=== PATIENT | female | born 1960 | race Hispanic/Latino ===

== ENCOUNTER 2017-03-23 08:35 | Inpatient (IN) | payer MEDICAID ==
[2017-03-23] MEDS ORDERED: Sodium Chloride 0.9% 1,000 ML IV STA (08:57)
[2017-03-23] MEDS ORDERED: HYDROmorphone 2 mg/ml ISec IVP STA ×2 (08:57→13:08)
[2017-03-23 09:18] LABS: BASO # 0.02 K/mm3 (0.0-2.0); BASO % 0.1 % (0.0-3.0); EOS # 0.1 (0.0-0.7); EOS % 0.4 % (1.5-5.0); GRAN # 12.83 (1.4-6.5); GRAN % 79.6 % (50.0-68.0); LYMPH # 2.1 (1.2-3.4); MEAN CELL VOLUME 88.5 fl (80.0-105.0); MEAN CORPUSCULAR HEMOGLOBIN 30.5 pg (25.0-35.0); MEAN CORPUSCULAR HGB CONC 34.4 g/dl (31.0-37.0); MEAN PLATELET VOLUME 8.9 fl (7.0-11.0); MONO # 1.1 (0.1-0.6); MONO % 6.9 % (1.0-6.0); RED CELL DISTRIBUTION WIDTH 13.2 % (11.5-14.5); URINE BILIRUBIN SMALL (NEGATIVE); URINE BLOOD SMALL (NEGATIVE); URINE GLUCOSE (UA) NEGATIVE (NEGATIVE); URINE KETONE 15 mg/dL (NEGATIVE); URINE LEUKOCYTE ESTERASE NEGATIVE Leu/uL (NEGATIVE); URINE PROTEIN TRACE mg/dL (<30 mg/dL); WHITE BLOOD COUNT 16.1 10^3/ul (4.5-11.0)
--- NOTE | 2017-03-23 09:19 | ED PDOC ---
Arrival/HPI - General Chief Complaint: Abdominal Pain Time Seen by Provider: 03/23/17 08:39 Historian: Patient - History of Present Illness Narrative History of Present Illness (Text): 03/23/17 09:21 A 56 year old female, whose past medical history includes diverticulitis and kidney stones, presents to the emergency department complaining of worsening lower abdominal pain since yesterday with associated nausea and vomiting this morning. Patient reports she also had congestion, constipation and low grade fever for the past couple of weeks. Notes last bowel movement was two days ago, decrease in appetite but denies any hematuria, dysuria or any other complaints at this time. Symptom Onset: Sudden Symptom Course: Unchanged Activities at Onset: Rest Context: Home Past Medical History - Provider Review Nursing Documentation Reviewed: Yes - Infectious Disease Hx of Infectious Diseases: None - Tetanus Immunization Tetanus Immunization: Unknown - Cardiac Hx Cardiac Disorders: No - Pulmonary Hx Respiratory Disorders: No - Neurological Hx Seizures: Yes (ONLY ONE) Other/Comment: 2012 BRAIN ABSCESS WITH CRANIOTOMY - HEENT Hx HEENT Disorder: No - Renal Hx Kidney Stones: Yes (LITHOTRISPY) - Endocrine/Metabolic Hx Endocrine Disorders: No - Hematological/Oncological Hx Blood Transfusions: No - Integumentary Hx Dermatological Disorder: No - Musculoskeletal/Rheumatological Hx Musculoskeletal Disorders: No - Gastrointestinal Hx Diverticulitis: Yes - Genitourinary/Gynecological Other/Comment: MISCARRIAGE,TUBAL LIGATION 3 CHILDREN - Psychiatric Hx Emotional Abuse: No Hx Physical Abuse: No Hx Substance Use: No - Surgical History Other/Comment: 2012 CRANIOTOMY (BRAIN ABSCESS) - Anesthesia Hx Anesthesia Reactions: No Hx Malignant Hyperthermia: No - Suicidal Assessment Feels Threatened In Home Enviroment: No Family/Social History - Physician Review Nursing Documentation Reviewed: Yes Family/Social History: No Known Family HX Smoking Status: Current Some Days Smoker Hx Alcohol Use: No Hx Substance Use: No Hx Substance Use Treatment: No Allergies/Home Meds Allergies/Adverse Reactions: Allergies ceftriaxone sodium [From Rocephin] Allergy (Verified 08/12/16 00:53) RASH Penicillins Allergy (Verified 08/12/16 00:53) RASH Home Medications: Home Meds Medication Instructions Recorded Confirmed No Known Home Med 03/23/17 03/23/17 Review of Systems - Review of Systems Constitutional: Fatigue, Weight Change, Fevers (low grade) Eyes: absent: Eye Pain ENT: Sinus Congestion. absent: Hearing Changes Respiratory: absent: SOB Cardiovascular: absent: Chest Pain Gastrointestinal: Abdominal Pain, Constipation, Nausea, Vomiting, Appetite Changes Genitourinary Female: absent: Dysuria, Hematuria, Urine Output Changes Musculoskeletal: absent: Back Pain, Neck Pain Skin: absent: Rash Neurological: absent: Headache, Dizziness, Focal Weakness Hemo/Lymphatic: absent: Easy Bleeding Physical Exam - Physical Exam Narrative Physical Exam (Text): 03/23/17 09:19 Head: Atraumatic. Normocephalic. Eyes: PERRL. EOMI. Conjunctivae are not pale. ENT: Mucous membranes are moist and intact. Oropharynx is clear and symmetric. Neck: Supple. Full ROM. No JVD. No lymphadenopathy. Cardiovascular: Regular rate. Regular rhythm. No murmurs, rubs, or gallops. Distal pulses are 2+ and symmetric. Pulmonary/Chest: No evidence of respiratory distress. Clear to auscultation bilaterally. No wheezing, rales or rhonchi. Abdominal: Diffuse lower abdominal tenderness, more focal in suprapubic region. Good bowel sounds. Moderate pain with direct palpation. Back: No CVA tenderness. Extremities: No edema. No cyanosis. No clubbing. Full range of motion in all extremities. No calf tenderness. Skin: Skin is warm and dry. No petechiae. No purpura. Neurological: Alert, awake, and oriented. Motor and sensory exam intact. Psychiatric: Good eye contact. Normal interaction, affect, and behavior. Vital Signs Reviewed: Yes Vital Signs Temp Pulse Resp BP Pulse Ox 03/23/17 11:29 73 18 108/72 96 03/23/17 10:31 74 18 110/76 98 03/23/17 08:36 97.7 F 87 18 131/80 97 Temperature: Afebrile Blood Pressure: Normal Pulse: Regular Respiratory Rate: Normal Appearance: Positive for: Non-Toxic, Uncomfortable Pain Distress: Moderate Mental Status: Positive for: Alert and Oriented X 3 Medical Decision Making ED Course and Treatment: 03/23/17 09:16 Impression: A 56 year old female with abdominal pain. Differential Diagnosis included but are not limited to: diverticulitis vs. bowel obstruction vs. kidney stones Plan: -- EKG -- CT abd/pelvis -- labs -- Urinalysis -- Dilaudid, IV fluids, Zofran -- Reassess and disposition Prior Visits: Notes and results from previous visits were reviewed. Patient was last seen in the emergency department on 08/17/16 for evaluation of right flank pain. Progress Notes: Patient noted to have moderate to severe pain on palpation. IV pain medication ordered and iv hydration. CT ordered. 03/23/17 10:32 CT Abdomen and Pelvis with contrast Creator : DRAGAN CAPELLAN MD FINDINGS: LOWER THORAX: Unremarkable. LIVER: Unremarkable. No gross lesion or ductal dilatation. GALLBLADDER AND BILE DUCTS: Unremarkable. PANCREAS: Unremarkable. No gross lesion or ductal dilatation. SPLEEN: Unremarkable. ADRENALS: Unremarkable. No mass. KIDNEYS AND URETERS: Unremarkable. No hydronephrosis. No solid mass. VASCULATURE: Unremarkable. No aortic aneurysm. BOWEL: Diverticulosis of descending and sigmoid colon. Acute sigmoid diverticulitis. Very sigmoid inflammatory change. Mural thickening of the sigmoid colon. Findings consistent with acute diverticulitis. No evidence of pericolonic abscess or free air. No bowel obstruction. No other abnormal bowel loops. APPENDIX: Normal appendix. PERITONEUM: Unremarkable. No free fluid. No free air. LYMPH NODES: Unremarkable. No enlarged lymph nodes. BLADDER: Poorly distended. Grossly unremarkable. REPRODUCTIVE: Normal uterus. BONES: No acute fracture. IMPRESSION: Acute sigmoid diverticulitis. No evidence of abscess or free air. No other significant abnormality. 03/23/17 10:50 On reexamination, pain has improved after Dilaudid, but persistent. white blood count is elevated and patient is found to have acute diverticulitis on CT abd/ pelvis. No mention of abscess or perforation. Due to severity of pain, patient will be admitted for abdominal pain and IV antibiotics. Patient reports allergy to penicillin. Plan is to admit patient to hospitalist. CV stable, afebrile currently in ED. Labs and CT findings reviewed with patient and family, agreeable to admission due to severity of pain that is persistent and CT findings. - Lab Interpretations Lab Results: 03/23/17 09:00 03/23/17 09:00 Lab Results 03/23/17 09:00: Sodium 141, Chloride 102, Potassium 3.7, Carbon Dioxide 28, Anion Gap 15, BUN 13, Creatinine 0.5, Est GFR ( Amer) > 60, Est GFR (Non- Af Amer) > 60, Random Glucose 120 H, Calcium 9.3, Total Bilirubin 0.5, AST 35, ALT 38, Alkaline Phosphatase 156 H, Lactate Dehydrogenase 457, Total Creatine Kinase 87, Troponin I < 0.01, Total Protein 8.0, Albumin 3.9, Globulin 4.1, Albumin/Globulin Ratio 1.0 L 03/23/17 09:00: pO2 71 H, VBG pH 7.45 H, VBG pCO2 43.0, VBG HCO3 29.9 H, VBG Total CO2 31.2 H, VBG O2 Sat (Calc) 97.4 H, VBG Base Excess 5.2 H, VBG Potassium 3.7, Sodium 139.0, Chloride 103.0, Glucose 122 H, Lactate 0.7, FiO2 21.0, Venous Blood Potassium 3.7 03/23/17 09:00: Urine Color Yellow, Urine Appearance Clear, Urine pH 6.0, Ur Specific [place] >= 1.030, Urine Protein Trace H, Urine Glucose (UA) Negative, Urine Ketones 15 H, Urine Blood Small H, Urine Nitrate Negative, Urine Bilirubin Small H, Urine Urobilinogen 2.0 H, Ur Leukocyte Esterase Negative, Urine RBC 0 - 2, Urine WBC 0 - 2, Ur Epithelial Cells 1 - 3, Urine Bacteria Small 03/23/17 09:00: WBC 16.1 H D, RBC 3.84, Hgb 11.7 L, Hct 34.0 L, MCV 88.5, MCH 30.5, MCHC 34.4, RDW 13.2, Plt Count 492 H, MPV 8.9, Gran % 79.6 H, Lymph % ( Auto) 13.0 L, [place] % (Auto) 6.9 H, Eos % (Auto) 0.4 L, Baso % (Auto) 0.1, Gran # 12.83 H, Lymph # 2.1, [place] # 1.1 H, Eos # 0.1, Baso # 0.02 I have reviewed the lab results: Yes - RAD Interpretation Radiology Orders: 03/23/17 08:57 ABD & PELVIS IV CONTRAST ONLY [CT] Stat - EKG Interpretation Interpreted by ED Physician: Yes Type: 12 lead EKG - Medication Orders Current Medication Orders: Metronidazole (Flagyl) 500 mg in 100 mls @ 100 mls/hr IVPB STAT STA PRN Reason: Protocol Stop: 03/23/17 11:51 Last Admin: 03/23/17 11:01 Dose: 100 mls/hr Discontinued Medications Hydromorphone HCl (Dilaudid) 2 mg IVP STAT STA Stop: 03/23/17 08:58 Last Admin: 03/23/17 09:15 Dose: 2 mg Sodium Chloride (Sodium Chloride 0.9%) 1,000 mls @ 1,000 mls/hr IV .Q1H STA Stop: 03/23/17 09:56 Last Admin: 03/23/17 09:14 Dose: 1,000 mls/hr Iohexol (Omnipaque 350 100 Ml) Confirm Administered Dose 350 mg .ROUTE .STK-MED ONE Stop: 03/23/17 09:44 Levofloxacin/Dextrose (Levaquin 750mg) 750 mg IVPB STAT STA Stop: 03/23/17 10:53 Ondansetron HCl (Zofran Inj) 4 mg IVP ONCE ONE Stop: 03/23/17 08:58 Last Admin: 03/23/17 09:15 Dose: 4 mg - Lamaribe Statement The provider has reviewed the documentation as recorded by the Jai Zhu Provider Scribe Attestation: All medical record entries made by the Jai were at my direction and personally dictated by me. I have reviewed the chart and agree that the record accurately reflects my personal performance of the history, physical exam, medical decision making, and the department course for this patient. I have also personally directed, reviewed, and agree with the discharge instructions and disposition. Disposition/Present on Arrival - Present on Arrival Any Indicators Present on Arrival: No History of DVT/PE: No History of Uncontrolled Diabetes: No Urinary Catheter: No History of Decub. Ulcer: No History Surgical Site Infection Following: None - Disposition Have Diagnosis and Disposition been Completed?: Yes Diagnosis: Acute diverticulitis Disposition: HOSPITALIZED Disposition Time: 10:54 Patient Plan: Discharge Patient Problems: Current Active Problems Problem Status Onset Acute diverticulitis Acute Condition: FAIR
[2017-03-23 09:20] LABS: VENOUS BLOOD GAS BASE EXCESS 5.2 mmol/L (0.0-2.0); VENOUS BLOOD PH 7.45 (7.32-7.43)
[2017-03-23 09:23] LABS: URINE COLOR YELLOW (YELLOW)
[2017-03-23 09:24] LABS: URINE APPEARANCE CLEAR (CLEAR)
[2017-03-23 09:27] LABS: ALKALINE PHOSPHATASE 156 U/L (38-133); ALT/SGPT 38 U/L (7-56); AST/SGOT 35 U/L (15-39); BILIRUBIN,TOTAL 0.5 mg/dL (0.2-1.3); BLOOD UREA NITROGEN 13 mg/dL (7-21); CALCIUM 9.3 mg/dL (8.4-10.5); CARBON DIOXIDE 28 mmol/L (21-33); CHLORIDE 102 mmol/L (98-107); GFR AFRICAN-AMERICAN > 60; GLUCOSE,RANDOM 120 mg/dL (70-110); POTASSIUM 3.7 mmol/L (3.6-5.0); SODIUM 141 mmol/L (132-148)
[2017-03-23 09:35] LABS: URINE BACTERIA SMALL (NEG); URINE RBC 0 - 2 /hpf (0-2); URINE WBC 0 - 2 /hpf (0-6)
[2017-03-23 09:39] LABS: TROPONIN I < 0.01 ng/mL
[2017-03-23] MEDS ORDERED: Iohexol 350 MG/100 ML VIAL ONE (09:43)
--- NOTE | 2017-03-23 10:30 | CT ---
PROCEDURE: CT Abdomen and Pelvis with contrast HISTORY: lower abdominal pain, hx of diverticulitis COMPARISON: 08/17/2016 TECHNIQUE: Contrast dose: 100 mL Omnipaque 350 Radiation dose: Total exam DLP = 978.86 mGy-cm. This CT exam was performed using one or more of the following dose reduction techniques: Automated exposure control, adjustment of the mA and/or kV according to patient size, and/or use of iterative reconstruction technique. FINDINGS: LOWER THORAX: Unremarkable. LIVER: Unremarkable. No gross lesion or ductal dilatation. GALLBLADDER AND BILE DUCTS: Unremarkable. PANCREAS: Unremarkable. No gross lesion or ductal dilatation. SPLEEN: Unremarkable. ADRENALS: Unremarkable. No mass. KIDNEYS AND URETERS: Unremarkable. No hydronephrosis. No solid mass. VASCULATURE: Unremarkable. No aortic aneurysm. BOWEL: Diverticulosis of descending and sigmoid colon. Acute sigmoid diverticulitis. Very sigmoid inflammatory change. Mural thickening of the sigmoid colon. Findings consistent with acute diverticulitis. No evidence of pericolonic abscess or free air. No bowel obstruction. No other abnormal bowel loops. APPENDIX: Normal appendix. PERITONEUM: Unremarkable. No free fluid. No free air. LYMPH NODES: Unremarkable. No enlarged lymph nodes. BLADDER: Poorly distended. Grossly unremarkable. REPRODUCTIVE: Normal uterus. BONES: No acute fracture. OTHER FINDINGS: None. IMPRESSION: Acute sigmoid diverticulitis. No evidence of abscess or free air. No other significant abnormality.
[2017-03-23] MEDS ORDERED: levoFLOXacin 750 mg in D5W 150 ML BAG IVPB STA (10:52)
[2017-03-23] MEDS ORDERED: metroNIDAZOLE IV 500 mg/100 ml 500 MG/100 ML BAG IVPB STA (10:52)
[2017-03-23] MEDS ORDERED: HYDROmorphone 2 mg/ml ISec IVP PRN (12:59)
--- NOTE | 2017-03-23 13:37 | CP.PCM.HP ---
<Kenna Lee - Last Filed: 03/23/17 14:06> History of Present Illness - History of Present Illness History of Present Illness: Patient is a 56 year old female with PMHx of diverticulitis, nephrolithiasis and brain abscess presents to the ED for lower abdominal pain that started yesterday afternoon. Patient states that lower abdominal pain was constant, no radiation. Rates the pain 10/10. No alleviating or exacerbating factors. Pain was associated with multiple episodes of nausea and NBNB vomiting this morning. Patient states that she have a temp of 100.2 last night. Reports having decreased appetite and losing 17lbs within the last month. Denies chills, visual changes, chest pain, palpitations, shortness of breath, urinary symptoms , changes in bowel habits. Last BM was two days ago. Allergies: Ceftriaxone, PCN Medications: denies Medical Hx: denies Surgical Hx: Craniotomy for brain abscess removal, BTL, lithotripsy Social Hx: Denies alcohol, tobacco, drugs use; never had a colonoscopy Family Hx: non-contributory Present on Admission - Present on Admission Any Indicators Present on Admission: No History of DVT/PE: No History of Uncontrolled Diabetes: No Urinary Catheter: No Decubitus Ulcer Present: No Review of Systems - Review of Systems All systems: reviewed and no additional remarkable complaints except - Constitutional Constitutional: Fever, Weight Loss. absent: Chills, Headache - EENT Eyes: absent: Blurred Vision, Change in Vision Ears: absent: Decreased Hearing - Cardiovascular Cardiovascular: absent: Chest Pain, Dyspnea, Lightheadedness, Palpitations, Pedal Edema - Respiratory Respiratory: absent: Cough, Dyspnea, Wheezing - Gastrointestinal Gastrointestinal: Abdominal Pain, Constipation, Nausea, Vomiting. absent: Bloating, Diarrhea - Genitourinary Genitourinary: absent: Difficulty Urinating, Hematuria, Urinary Incontinence - Musculoskeletal Musculoskeletal: absent: Back Pain, Numbness, Tingling - Integumentary Integumentary: absent: Rash - Neurological Neurological: absent: Confusion, Dizziness, Headaches, Weakness Past Patient History - Infectious Disease Hx of Infectious Diseases: None - Tetanus Immunizations Tetanus Immunization: Unknown - Past Social History Smoking Status: Current Some Days Smoker - CARDIAC Hx Cardiac Disorders: No - PULMONARY Hx Respiratory Disorders: No - NEUROLOGICAL Hx Seizures: Yes (ONLY ONE) Other/Comment: 2013 BRAIN ABSCESS WITH CRANIOTOMY - HEENT Hx HEENT Problems: No - RENAL Hx Kidney Stones: Yes (LITHOTRISPY) - ENDOCRINE/METABOLIC Hx Endocrine Disorders: No - HEMATOLOGICAL/ONCOLOGICAL Hx Blood Transfusions: No - INTEGUMENTARY Hx Dermatological Problems: No - MUSCULOSKELETAL/RHEUMATOLOGICAL Hx Musculoskeletal Disorders: No - GASTROINTESTINAL Hx Diverticulitis: Yes - GENITOURINARY/GYNECOLOGICAL Other/Comment: MISCARRIAGE,TUBAL LIGATION 3 CHILDREN - PSYCHIATRIC Hx Emotional Abuse: No Hx Physical Abuse: No Hx Substance Use: No - SURGICAL HISTORY Other/Comment: 2013 CRANIOTOMY (BRAIN ABSCESS) - ANESTHESIA Hx Anesthesia Reactions: No Hx Malignant Hyperthermia: No Meds Allergies/Adverse Reactions: Allergies Allergy/AdvReac Type Severity Reaction Status Date / Time ceftriaxone sodium Allergy RASH Verified 03/23/17 11:50 [From Rocephin] Penicillins Allergy RASH Verified 03/23/17 11:50 Physical Exam - Constitutional Appears: Well, No Acute Distress - Head Exam Head Exam: ATRAUMATIC, NORMAL INSPECTION - Eye Exam Eye Exam: EOMI, Normal appearance Pupil Exam: NORMAL ACCOMODATION - ENT Exam ENT Exam: Mucous Membranes Moist - Neck Exam Neck exam: Positive for: Full Rom - Respiratory Exam Respiratory Exam: Clear to Auscultation Bilateral, NORMAL BREATHING PATTERN. absent: Rales, Rhonchi, Wheezes - Cardiovascular Exam Cardiovascular Exam: REGULAR RHYTHM, +S1, +S2. absent: Systolic Murmur - GI/Abdominal Exam GI & Abdominal Exam: Normal Bowel Sounds, Soft, Tenderness. absent: Distended, Guarding, Rebound, Rigid - Extremities Exam Extremities exam: Positive for: normal capillary refill, normal inspection, pedal pulses present. Negative for: calf tenderness, pedal edema - Back Exam Back exam: NORMAL INSPECTION - Neurological Exam Neurological exam: Alert, CN II-XII Intact, Normal Gait, Oriented x3 - Psychiatric Exam Psychiatric exam: Normal Affect, Normal Mood - Skin Skin Exam: Dry, Normal Color, Warm Results - Vital Signs Recent Vital Signs: Last Vital Signs Temp 97.7 F 03/23/17 08:36 Pulse 73 03/23/17 11:29 Resp 18 03/23/17 11:29 BP 108/72 03/23/17 11:29 Pulse Ox 96 03/23/17 11:29 - Labs Result Diagrams: 03/23/17 09:00 03/23/17 09:00 Assessment & Plan - Assessment and Plan (Free Text) Assessment: 56 year old female with pmhx of diverticulitis, nephrolithiasis, brain abscess presents to the ED with worsening lower abdominal pain. CT abd/pelvis showing acute sigmoid diverticulitis with no evidence of free air or perforation. Plan: 1. Acute Sigmoid Diverticulitis -Stable, afebrile -Leukocytosis 16.1 on admission -Continue Abx: Levaquin and Flagyl -F/U am labs -IVF hydration -Diet NPO -Zofran prn nausea -Pain control: Dilaudid 1mg Q4H prn -F/U blood cx, urine cx, C diff -GI consulted, f/u recommendations 2. GI/DVT -Protonix -SCDs <Hernando Uribe - Last Filed: 03/25/17 16:14> Results - Vital Signs Recent Vital Signs: Last Vital Signs Temp 99.1 F 03/25/17 08:39 Pulse 84 03/25/17 08:39 Resp 24 03/25/17 08:39 BP 124/82 03/25/17 08:39 Pulse Ox 91 L 03/25/17 08:39 - Labs Result Diagrams: 03/25/17 08:00 03/25/17 08:00 Labs: Laboratory Results - last 24 hr 03/25/17 03/25/17 08:00 08:00 WBC 14.3 H RBC 3.54 Hgb 10.5 L Hct 31.7 L MCV 89.5 MCH 29.7 MCHC 33.1 RDW 13.3 Plt Count 401 MPV 9.2 Gran % 82.5 H Lymph % (Auto) 9.4 L [place] % (Auto) 7.2 H Eos % (Auto) 0.8 L Baso % (Auto) 0.1 Gran # 11.79 H Lymph # 1.4 [place] # 1.0 H Eos # 0.1 Baso # 0.02 Sodium 137 Potassium 3.4 L Chloride 101 Carbon Dioxide 25 Anion Gap 14 BUN 6 L Creatinine 0.5 Est GFR ( Amer) > 60 Est GFR (Non-Af Amer) > 60 Random Glucose 71 Calcium 8.5 Phosphorus 3.0 Magnesium 1.7 Total Bilirubin 0.5 AST 30 ALT 27 Alkaline Phosphatase 129 Total Protein 6.7 Albumin 3.1 Globulin 3.6 Albumin/Globulin Ratio 0.9 L Attending/Attestation - Attestation I have personally seen and examined this patient.: Yes I have fully participated in the care of the patient.: Yes I have reviewed all pertinent clinical information: Yes Notes (Text): I have seen and examined the patient at bedside. Agree with the above note with the following additions/ exceptions: Briefly this is 56 year old female with history of diverticulitis, nephrolithiasis and brain abscess s/p craniotomy, nephrolithiasis s/p lithotripsy, tubal ligation who was admitted for acute sigmoid diverticulitis. Will admit her and start IVF, analgesics and IV antibiotics. Patient will be npo. Will consult GI. Follow up on cultures. Upon discharge patient will follow up with PMD of choice. Dr Hernando Uribe.
[2017-03-23 14:39] VITALS: BMI 33.1
[2017-03-23] MEDS ORDERED: Pneumococcal 23-Valent Vaccine IM ONE (14:39)
[2017-03-23] MEDS: HYDROmorphone 2 mg/ml ISec IVP PRN ×2 (17:16→21:27)
--- NOTE | 2017-03-23 19:56 | CARD ---
APPROVED REPORT EKG Measurement Heart [id number] <Conclusion> Normal sinus rhythm Possible Left atrial enlargement Left ventricular hypertrophy Abnormal ECG
[2017-03-23] MEDS: metroNIDAZOLE IV 500 mg/100 ml 500 MG/100 ML BAG IVPB SCH (21:29)
[2017-03-23] MEDS: Sodium Chloride 0.9% 1,000 ML IV SCH (23:20)
[2017-03-24] MEDS: HYDROmorphone 2 mg/ml ISec IVP PRN ×5 (03:28→23:51)
[2017-03-24] MEDS: Pantoprazole 40mg/100ml IVPB 40 MG/100 ML BAG IVPB SCH (05:36)
[2017-03-24] MEDS: metroNIDAZOLE IV 500 mg/100 ml 500 MG/100 ML BAG IVPB SCH ×3 (05:37→21:09)
[2017-03-24 06:04] LABS: BASO # 0.01 K/mm3 (0.0-2.0); BASO % 0.1 % (0.0-3.0); EOS # 0.1 (0.0-0.7); EOS % 0.6 % (1.5-5.0); GRAN # 10.46 (1.4-6.5); GRAN % 80.1 % (50.0-68.0); HEMATOCRIT 32.8 % (36.0-48.0); LYMPH # 1.5 (1.2-3.4); LYMPH % 11.4 % (22.0-35.0); MEAN CELL VOLUME 90.1 fl (80.0-105.0); MEAN CORPUSCULAR HEMOGLOBIN 29.7 pg (25.0-35.0); MEAN CORPUSCULAR HGB CONC 32.9 g/dl (31.0-37.0); MEAN PLATELET VOLUME 8.8 fl (7.0-11.0); MONO % 7.8 % (1.0-6.0); RED CELL DISTRIBUTION WIDTH 13.5 % (11.5-14.5); WHITE BLOOD COUNT 13.1 10^3/ul (4.5-11.0)
[2017-03-24 06:10] LABS: ALB/GLOB RATIO 0.9 (1.1-1.8); ALKALINE PHOSPHATASE 120 U/L (38-133); ALT/SGPT 32 U/L (7-56); AST/SGOT 28 U/L (15-39); BILIRUBIN,TOTAL 0.6 mg/dL (0.2-1.3); BLOOD UREA NITROGEN 8 mg/dL (7-21); CALCIUM 8.6 mg/dL (8.4-10.5); CARBON DIOXIDE 29 mmol/L (21-33); CHLORIDE 100 mmol/L (95-110); GFR AFRICAN-AMERICAN > 60; GLUCOSE,RANDOM 87 mg/dL (70-110); MAGNESIUM 1.7 mg/dL (1.7-2.2); PHOSPHOROUS 3.4 mg/dL (2.5-4.5); POTASSIUM 3.8 mmol/L (3.6-5.0); SODIUM 137 mmol/L (132-148); TOTAL PROTEIN 7.1 g/dL (5.8-8.3)
--- NOTE | 2017-03-24 08:54 | CP.PCM.CON ---
<Sandhya Noble - Last Filed: 03/24/17 10:45> History of Present Illness - History of Present Illness History of Present Illness: Gastroenterology Fellow/PGY5 Consult Note 56 year old female with history of brain abscess status post craniotomy, nephrolithiasis s/p lithotripsy, and Diverticulitis 2012 presenting with abdominal pain. Patient describes bilateral lower abdomen progressive pain for two days, pain scale 9/10. She developed multiple episodes of bilious vomitus yesterday leading to ER presentation. Associated fever, chills, and sweats. No bowel movement for the last two days. Denies recent travel, sick contacts, recent antibiotics, hematemesis, diarrhea, melena, hematochezia, or unintentional weight loss. No prior EGD or colonoscopy. Family- denies colorectal cancer Social-2 cigarettes/day x 40 years, denies alcohol or illicit drug use Surgery- craniotomy, lithotripsy, tubal ligation Review of Systems - Review of Systems Review of Systems: 12-point review of systems negative except for as above Past Patient History - Infectious Disease Hx of Infectious Diseases: None - Tetanus Immunizations Tetanus Immunization: Unknown - Past Social History Smoking Status: Current Some Days Smoker - CARDIAC Hx Cardiac Disorders: No - PULMONARY Hx Respiratory Disorders: No - NEUROLOGICAL Hx Neurological Disorder: Yes Hx Seizures: Yes (ONLY ONE) Other/Comment: 2012 BRAIN ABSCESS WITH CRANIOTOMY - HEENT Hx HEENT Problems: No - RENAL Hx Kidney Stones: Yes (LITHOTRISPY) - ENDOCRINE/METABOLIC Hx Endocrine Disorders: No - HEMATOLOGICAL/ONCOLOGICAL Hx Blood Disorders: No - INTEGUMENTARY Hx Dermatological Problems: No - MUSCULOSKELETAL/RHEUMATOLOGICAL Hx Musculoskeletal Disorders: No Hx Falls: No - GASTROINTESTINAL Hx Gastrointestinal Disorders: Yes Hx Diverticulitis: Yes - GENITOURINARY/GYNECOLOGICAL Other/Comment: MISCARRIAGE,TUBAL LIGATION 3 CHILDREN - PSYCHIATRIC Hx Emotional Abuse: No Hx Physical Abuse: No Hx Substance Use: No - SURGICAL HISTORY Hx Surgeries: Yes Other/Comment: 2012 CRANIOTOMY (BRAIN ABSCESS) - ANESTHESIA Hx Anesthesia Reactions: No Hx Malignant Hyperthermia: No Meds Allergies/Adverse Reactions: Allergies Allergy/AdvReac Type Severity Reaction Status Date / Time ceftriaxone sodium Allergy RASH Verified 03/23/17 11:50 [From Rocephin] Penicillins Allergy RASH Verified 03/23/17 11:50 - Medications Medications: Current Medications Hydromorphone HCl (Dilaudid) 1 mg IVP Q4H PRN PRN Reason: Pain, severe (8-10) Last Admin: 03/24/17 07:58 Dose: 1 mg Metronidazole (Flagyl) 500 mg in 100 mls @ 100 mls/hr IVPB Q8 TEX PRN Reason: Protocol Last Admin: 03/24/17 05:37 Dose: 100 mls/hr Sodium Chloride (Sodium Chloride 0.9%) 1,000 mls @ 125 mls/hr IV .Q8H [facility] Last Admin: 03/23/17 23:20 Dose: 125 mls/hr Pantoprazole Sodium (Protonix 40mg Ivpb) 40 mg in 100 mls @ 200 mls/hr IVPB 0600 [facility] Last Admin: 03/24/17 05:36 Dose: 200 mls/hr Levofloxacin/Dextrose (Levaquin 750mg) 750 mg IVPB DAILY [facility] Ondansetron HCl (Zofran Inj) 4 mg IVP Q6H PRN PRN Reason: Nausea/Vomiting Physical Exam - Constitutional Appears: Non-toxic, No Acute Distress - Head Exam Head Exam: ATRAUMATIC, NORMOCEPHALIC - Eye Exam Eye Exam: EOMI, PERRL Pupil Exam: PERRL. absent: Miosis, Mydriatic - ENT Exam ENT Exam: Mucous Membranes Moist, Normal Oropharynx - Neck Exam Neck exam: Positive for: Full Rom, Normal Inspection - Respiratory Exam Respiratory Exam: Clear to Auscultation Bilateral. absent: Rales, Rhonchi, Wheezes - Cardiovascular Exam Cardiovascular Exam: RRR, +S1, +S2. absent: Gallop, Rubs - GI/Abdominal Exam GI & Abdominal Exam: Normal Bowel Sounds, Soft, Tenderness. absent: Distended, Firm, Guarding, Organomegaly, Pulsatile Mass, Rebound, Rigid Additional comments: B/L LQ tenderness to palpation - Extremities Exam Extremities exam: Positive for: normal inspection. Negative for: pedal edema - Neurological Exam Neurological exam: Alert - Psychiatric Exam Psychiatric exam: Normal Affect, Normal Mood - Skin Skin Exam: Dry, Intact, Normal Color, Warm Results - Vital Signs Recent Vital Signs: Last Vital Signs Temp 99.3 F 03/24/17 07:44 Pulse 80 03/24/17 07:44 Resp 20 03/24/17 07:44 BP 120/78 03/24/17 07:44 Pulse Ox 95 03/24/17 07:44 - Labs Result Diagrams: 03/24/17 05:30 03/24/17 05:30 Labs: Laboratory Results - last 24 hr 03/24/17 03/24/17 05:30 05:30 WBC 13.1 H RBC 3.64 Hgb 10.8 L Hct 32.8 L MCV 90.1 MCH 29.7 MCHC 32.9 RDW 13.5 Plt Count 418 MPV 8.8 Gran % 80.1 H Lymph % (Auto) 11.4 L [place] % (Auto) 7.8 H Eos % (Auto) 0.6 L Baso % (Auto) 0.1 Gran # 10.46 H Lymph # 1.5 [place] # 1.0 H Eos # 0.1 Baso # 0.01 Sodium 137 Potassium 3.8 Chloride 100 Carbon Dioxide 29 Anion Gap 12 BUN 8 Creatinine 0.5 Est GFR ( Amer) > 60 Est GFR (Non-Af Amer) > 60 Random Glucose 87 Calcium 8.6 Phosphorus 3.4 Magnesium 1.7 Total Bilirubin 0.6 AST 28 ALT 32 Alkaline Phosphatase 120 Total Protein 7.1 Albumin 3.3 Globulin 3.8 Albumin/Globulin Ratio 0.9 L Assessment & Plan - Assessment and Plan (Free Text) Assessment: 56 year old female with history of brain abscess status post craniotomy, nephrolithiasis, and Diverticulitis 2012 presenting with abdominal pain. Active treatment of uncomplicated sigmoid diverticulitis. No prior EGD or colonoscopy. Plan: >continue Levaquin/Flagyl >supportive care: pain control, anti-emetics >clear liquid diet, advance as tolerated >will require elective colonoscopy in 6-8 weeks >outpatient follow up with Dr. Franco in 2 weeks >will follow clinical course <Chris Franco - Last Filed: 03/24/17 12:04> Meds - Medications Medications: Current Medications Hydromorphone HCl (Dilaudid) 1 mg IVP Q4H PRN PRN Reason: Pain, severe (8-10) Last Admin: 03/24/17 07:58 Dose: 1 mg Metronidazole (Flagyl) 500 mg in 100 mls @ 100 mls/hr IVPB Q8 TEX PRN Reason: Protocol Last Admin: 03/24/17 05:37 Dose: 100 mls/hr Sodium Chloride (Sodium Chloride 0.9%) 1,000 mls @ 125 mls/hr IV .Q8H [facility] Last Admin: 03/24/17 09:24 Dose: 125 mls/hr Pantoprazole Sodium (Protonix 40mg Ivpb) 40 mg in 100 mls @ 200 mls/hr IVPB 0600 [facility] Last Admin: 03/24/17 05:36 Dose: 200 mls/hr Levofloxacin/Dextrose (Levaquin 750mg) 750 mg IVPB DAILY [facility] Last Admin: 03/24/17 09:24 Dose: 750 mg Ondansetron HCl (Zofran Inj) 4 mg IVP Q6H PRN PRN Reason: Nausea/Vomiting Results - Vital Signs Recent Vital Signs: Last Vital Signs Temp 99.3 F 03/24/17 07:44 Pulse 80 03/24/17 07:44 Resp 20 03/24/17 07:44 BP 120/78 03/24/17 07:44 Pulse Ox 95 03/24/17 07:44 - Labs Result Diagrams: 03/24/17 05:30 03/24/17 05:30 Labs: Laboratory Results - last 24 hr 03/24/17 03/24/17 05:30 05:30 WBC 13.1 H RBC 3.64 Hgb 10.8 L Hct 32.8 L MCV 90.1 MCH 29.7 MCHC 32.9 RDW 13.5 Plt Count 418 MPV 8.8 Gran % 80.1 H Lymph % (Auto) 11.4 L [place] % (Auto) 7.8 H Eos % (Auto) 0.6 L Baso % (Auto) 0.1 Gran # 10.46 H Lymph # 1.5 [place] # 1.0 H Eos # 0.1 Baso # 0.01 Sodium 137 Potassium 3.8 Chloride 100 Carbon Dioxide 29 Anion Gap 12 BUN 8 Creatinine 0.5 Est GFR ( Amer) > 60 Est GFR (Non-Af Amer) > 60 Random Glucose 87 Calcium 8.6 Phosphorus 3.4 Magnesium 1.7 Total Bilirubin 0.6 AST 28 ALT 32 Alkaline Phosphatase 120 Total Protein 7.1 Albumin 3.3 Globulin 3.8 Albumin/Globulin Ratio 0.9 L Attending/Attestation - Attestation I have personally seen and examined this patient.: Yes I have fully participated in the care of the patient.: Yes I have reviewed all pertinent clinical information: Yes Notes (Text): 03/24/17 12:00 I have seen and examined patient with GI fellow. Agree with above documentation with the following additions. In brief, this is a 56 year old female with history of brain abscess s/p craniotomy, diverticulitis who presents to hospital with complaint of progressive bilateral lower quadrant abdominal pain for the past two days. Prior to this she was in usual state of health. Her last episode of diverticulitis was in 2012. She describes sharp, 9 /10 intensity abdominal pain that was associated with fever/chills and multiple episodes of non-bloody emesis. She denies sick contacts, recent travel, recent antibiotic use, weight loss, rectal bleeding, or change in bowel habits. She has not had any bowel movements over the past 2 days. No prior endoscopic evaluation. History of brain abscess s/p craniotomy Abdominal pain - acute, uncomplicated sigmoid diverticulitis - Clear liquid diet as tolerated - Continue with antibiotic therapy - Pain control - Patient will require subsequent outpatient follow up colonoscopy 6-8 weeks following resolution of symptoms. Office contact information provided to patient, will continue to monitor clinical course.
[2017-03-24] MEDS: Sodium Chloride 0.9% 1,000 ML IV SCH ×2 (09:24→21:09)
[2017-03-24] MEDS: levoFLOXacin 750 mg in D5W 150 ML BAG IVPB SCH (09:24)
--- NOTE | 2017-03-24 11:56 | CP.PCM.PN ---
<Kenna Lee - Last Filed: 03/24/17 12:00> Subjective - Date & Time of Evaluation Date of Evaluation: 03/24/17 Time of Evaluation: 07:10 - Subjective Subjective: Kenna Lee DO, PGY-1, Internal Medicine, Hospitalist Service Patient seen and examined at bedside. Per nursing no acute events overnight. Patient still having abdominal pain but improving. Tolerated sips of water, no nausea or vomiting. Reports not having much of an appetite. Denies headaches, dizziness, cp, sob, palpitations, fevers, chills, urinary symptoms, no BM in 3 days. Objective - Vital Signs/Intake and Output Vital Signs (last 24 hours): Temp Pulse Resp BP Pulse Ox 99.3 F 80 20 120/78 95 03/24/17 07:44 03/24/17 07:44 03/24/17 07:44 03/24/17 07:44 03/24/17 07:44 Intake and Output: 03/24/17 03/24/17 06:59 18:59 Intake Total 540 Balance 540 - Medications Medications: Current Medications Hydromorphone HCl (Dilaudid) 1 mg IVP Q4H PRN PRN Reason: Pain, severe (8-10) Last Admin: 03/24/17 07:58 Dose: 1 mg Metronidazole (Flagyl) 500 mg in 100 mls @ 100 mls/hr IVPB Q8 TEX PRN Reason: Protocol Last Admin: 03/24/17 05:37 Dose: 100 mls/hr Sodium Chloride (Sodium Chloride 0.9%) 1,000 mls @ 125 mls/hr IV .Q8H [facility] Last Admin: 03/24/17 09:24 Dose: 125 mls/hr Pantoprazole Sodium (Protonix 40mg Ivpb) 40 mg in 100 mls @ 200 mls/hr IVPB 0600 [facility] Last Admin: 03/24/17 05:36 Dose: 200 mls/hr Levofloxacin/Dextrose (Levaquin 750mg) 750 mg IVPB DAILY [facility] Last Admin: 03/24/17 09:24 Dose: 750 mg Ondansetron HCl (Zofran Inj) 4 mg IVP Q6H PRN PRN Reason: Nausea/Vomiting - Labs Labs: 03/24/17 05:30 03/24/17 05:30 - Constitutional Appears: Well, No Acute Distress - Head Exam Head Exam: ATRAUMATIC, NORMAL INSPECTION - Eye Exam Eye Exam: EOMI, Normal appearance Pupil Exam: NORMAL ACCOMODATION - ENT Exam ENT Exam: Mucous Membranes Moist - Neck Exam Neck Exam: Full ROM, Normal Inspection - Respiratory Exam Respiratory Exam: Clear to Ausculation Bilateral, NORMAL BREATHING PATTERN. absent: Rales, Rhonchi, Wheezes - Cardiovascular Exam Cardiovascular Exam: REGULAR RHYTHM, +S1, +S2 - GI/Abdominal Exam GI & Abdominal Exam: Soft, Tenderness, Normal Bowel Sounds. absent: Guarding, Rigid, Rebound - Extremities Exam Extremities Exam: Normal Inspection. absent: Calf Tenderness, Tenderness - Back Exam Back Exam: NORMAL INSPECTION - Neurological Exam Neurological Exam: Alert, Awake, Oriented x3 - Psychiatric Exam Psychiatric exam: Normal Affect, Normal Mood - Skin Skin Exam: Dry, Normal Color, Warm Assessment and Plan - Assessment and Plan (Free Text) Assessment: 56 year old female with pmhx of diverticulitis, nephrolithiasis, brain abscess presents to the ED with worsening lower abdominal pain. CT abd/pelvis showing acute sigmoid diverticulitis with no evidence of free air or perforation. Plan: 1. Acute Sigmoid Diverticulitis -Stable, afebrile -Leukocytosis 16.1 on admission improving 13.1 today -Continue Abx: Levaquin and Flagyl (day 2) -F/U am labs -IVF hydration -Diet clear liquid diet, will advance as tolerated -Zofran prn nausea -Pain control: Dilaudid 1mg Q4H prn -Blood cx no growth x 24 hours -F/U urine cx, C diff -will require elective colonoscopy in 6-8 weeks -outpatient follow up with Dr. Franco in 2 weeks -GI consulted, f/u recommendations 2. GI/DVT -Protonix -SCDs <Hernando Uribe B - Last Filed: 03/25/17 16:26> Objective - Vital Signs/Intake and Output Vital Signs (last 24 hours): Temp Pulse Resp BP Pulse Ox 99.1 F 84 24 124/82 91 L 03/25/17 08:39 03/25/17 08:39 03/25/17 08:39 03/25/17 08:39 03/25/17 08:39 Intake and Output: 03/25/17 03/25/17 06:59 18:59 Intake Total 480 360 Balance 480 360 - Medications Medications: Current Medications Hydromorphone HCl (Dilaudid) 0.5 mg IVP Q6 PRN PRN Reason: Pain, severe (8-10) Metronidazole (Flagyl) 500 mg in 100 mls @ 100 mls/hr IVPB Q8 TEX PRN Reason: Protocol Last Admin: 03/25/17 14:30 Dose: 100 mls/hr Pantoprazole Sodium (Protonix 40mg Ivpb) 40 mg in 100 mls @ 200 mls/hr IVPB 0600 [facility] Last Admin: 03/25/17 05:11 Dose: 200 mls/hr Levofloxacin/Dextrose (Levaquin 750mg) 750 mg IVPB DAILY [facility] Last Admin: 03/25/17 09:21 Dose: 750 mg Ondansetron HCl (Zofran Inj) 4 mg IVP Q6H PRN PRN Reason: Nausea/Vomiting - Labs Labs: 03/25/17 08:00 03/25/17 08:00 Attending/Attestation - Attestation I have personally seen and examined this patient.: Yes I have fully participated in the care of the patient.: Yes I have reviewed all pertinent clinical information, including history, physical exam and plan: Yes Notes (Text): I have seen and examined the patient at bedside. Agree with the above note with the following additions/ exceptions: Briefly this is 56 year old female with history of diverticulitis, nephrolithiasis and brain abscess s/p craniotomy, nephrolithiasis s/p lithotripsy, tubal ligation who was admitted for acute sigmoid diverticulitis. Will continue IVF, analgesics and IV antibiotics. Will start clear liquid diet. Patient does not have an appetite. Follow up on cultures. Upon discharge patient will follow up with PMD of tim and Dr Franco as an outpatient for elective colonoscopy in 6-[address] Hernando Uribe.
[2017-03-25] MEDS: HYDROmorphone 2 mg/ml ISec IVP PRN (05:10)
[2017-03-25] MEDS: metroNIDAZOLE IV 500 mg/100 ml 500 MG/100 ML BAG IVPB SCH ×3 (05:11→21:00)
[2017-03-25] MEDS: Pantoprazole 40mg/100ml IVPB 40 MG/100 ML BAG IVPB SCH (05:11)
[2017-03-25] MEDS: Sodium Chloride 0.9% 1,000 ML IV SCH (05:13)
--- NOTE | 2017-03-25 07:22 | CP.PCM.PN ---
<Michel Capellan - Last Filed: 03/25/17 07:23> Subjective - Date & Time of Evaluation Date of Evaluation: 03/25/17 Time of Evaluation: 07:15 - Subjective Subjective: PGY4 GI follow-up Pt seen and examined bedside States that her pain in minimal at this time around 1-2 out of 10 post pain meds Prior to her pain meds in the am her pain was an 8 out of 10 She notes that her effective time for pain meds is increasing Denies any nausea, vomiting Denies any BM since admission Does not was to eat, tolerated clears yesterday Objective - Vital Signs/Intake and Output Vital Signs (last 24 hours): Temp Pulse Resp BP Pulse Ox 100.1 F H 91 H 20 133/81 93 L 03/24/17 16:15 03/24/17 16:15 03/24/17 16:15 03/24/17 16:15 03/24/17 16:15 Intake and Output: 03/25/17 03/25/17 06:59 18:59 Intake Total 480 Balance 480 - Medications Medications: Current Medications Hydromorphone HCl (Dilaudid) 1 mg IVP Q4H PRN PRN Reason: Pain, severe (8-10) Last Admin: 03/25/17 05:10 Dose: 1 mg Metronidazole (Flagyl) 500 mg in 100 mls @ 100 mls/hr IVPB Q8 TEX PRN Reason: Protocol Last Admin: 03/25/17 05:11 Dose: 100 mls/hr Sodium Chloride (Sodium Chloride 0.9%) 1,000 mls @ 125 mls/hr IV .Q8H [facility] Last Admin: 03/25/17 05:13 Dose: 125 mls/hr Pantoprazole Sodium (Protonix 40mg Ivpb) 40 mg in 100 mls @ 200 mls/hr IVPB 0600 [facility] Last Admin: 03/25/17 05:11 Dose: 200 mls/hr Levofloxacin/Dextrose (Levaquin 750mg) 750 mg IVPB DAILY [facility] Last Admin: 03/24/17 09:24 Dose: 750 mg Ondansetron HCl (Zofran Inj) 4 mg IVP Q6H PRN PRN Reason: Nausea/Vomiting - Labs Labs: 03/24/17 05:30 03/24/17 05:30 - Constitutional Appears: Well, No Acute Distress - Head Exam Head Exam: ATRAUMATIC, NORMOCEPHALIC - Eye Exam Eye Exam: Normal appearance - ENT Exam ENT Exam: Mucous Membranes Moist - Respiratory Exam Respiratory Exam: Clear to Ausculation Bilateral, NORMAL BREATHING PATTERN. absent: Rales, Rhonchi, Wheezes, Respiratory Distress - Cardiovascular Exam Cardiovascular Exam: REGULAR RHYTHM, +S1, +S2 - GI/Abdominal Exam GI & Abdominal Exam: Tenderness (in the lower quad B/L), Hypoactive Bowel Sounds. absent: Firm, Guarding, Rigid, Organomegaly - Rectal Exam Rectal Exam: Deferred - Neurological Exam Neurological Exam: Alert, Awake, Oriented x3 - Psychiatric Exam Psychiatric exam: Normal Affect, Normal Mood - Skin Skin Exam: Dry, Intact, Normal Color, Warm Assessment and Plan - Assessment and Plan (Free Text) Assessment: 56 year old female with history of brain abscess status post craniotomy, nephrolithiasis, and Diverticulitis 2012 presenting with abdominal pain. Active treatment of uncomplicated sigmoid diverticulitis. No prior EGD or colonoscopy. Plan: -continue Levaquin/Flagyl -supportive care: pain control, anti-emetics -advanced to full liquid in the AM, advance as tolerated, goal solids by tonight -will require elective colonoscopy in 6-8 weeks -outpatient follow up with Dr. Franco in 2 weeks -will follow clinical course will d/w Dr. Marroquin <Reji Marroquin - Last Filed: 03/25/17 09:33> Objective - Vital Signs/Intake and Output Vital Signs (last 24 hours): Temp Pulse Resp BP Pulse Ox 99.1 F 84 24 124/82 91 L 03/25/17 08:39 03/25/17 08:39 03/25/17 08:39 03/25/17 08:39 03/25/17 08:39 Intake and Output: 03/25/17 03/25/17 06:59 18:59 Intake Total 480 Balance 480 - Medications Medications: Current Medications Hydromorphone HCl (Dilaudid) 1 mg IVP Q4H PRN PRN Reason: Pain, severe (8-10) Last Admin: 03/25/17 05:10 Dose: 1 mg Metronidazole (Flagyl) 500 mg in 100 mls @ 100 mls/hr IVPB Q8 TEX PRN Reason: Protocol Last Admin: 03/25/17 05:11 Dose: 100 mls/hr Sodium Chloride (Sodium Chloride 0.9%) 1,000 mls @ 125 mls/hr IV .Q8H [facility] Last Admin: 03/25/17 05:13 Dose: 125 mls/hr Pantoprazole Sodium (Protonix 40mg Ivpb) 40 mg in 100 mls @ 200 mls/hr IVPB 0600 [facility] Last Admin: 03/25/17 05:11 Dose: 200 mls/hr Levofloxacin/Dextrose (Levaquin 750mg) 750 mg IVPB DAILY [facility] Last Admin: 03/25/17 09:21 Dose: 750 mg Ondansetron HCl (Zofran Inj) 4 mg IVP Q6H PRN PRN Reason: Nausea/Vomiting - Labs Labs: 03/25/17 08:00 03/25/17 08:00 Attending/Attestation - Attestation I have personally seen and examined this patient.: Yes I have fully participated in the care of the patient.: Yes I have reviewed all pertinent clinical information, including history, physical exam and plan: Yes Notes (Text): 03/25/17 09:32 56 year old F with prior h/o diverticulitis admitted with another episode of acute diverticulitis. 1. Acute diverticulitis Plan: -uncomplicated, continue antibiotics for 10-14 days today -2nd episode now -recommend outpatient colonoscopy when she recovers -advance diet as tolerated -ok to discharge from GI standpoint when tolerating regular diet
[2017-03-25 08:14] LABS: BASO # 0.02 K/mm3 (0.0-2.0); BASO % 0.1 % (0.0-3.0); EOS # 0.1 (0.0-0.7); EOS % 0.8 % (1.5-5.0); GRAN # 11.79 (1.4-6.5); GRAN % 82.5 % (50.0-68.0); HEMATOCRIT 31.7 % (36.0-48.0); LYMPH # 1.4 (1.2-3.4); LYMPH % 9.4 % (22.0-35.0); MEAN CELL VOLUME 89.5 fl (80.0-105.0); MEAN CORPUSCULAR HEMOGLOBIN 29.7 pg (25.0-35.0); MEAN CORPUSCULAR HGB CONC 33.1 g/dl (31.0-37.0); MEAN PLATELET VOLUME 9.2 fl (7.0-11.0); MONO % 7.2 % (1.0-6.0); RED CELL DISTRIBUTION WIDTH 13.3 % (11.5-14.5); WHITE BLOOD COUNT 14.3 10^3/ul (4.5-11.0)
[2017-03-25 08:21] LABS: ALB/GLOB RATIO 0.9 (1.1-1.8); ALKALINE PHOSPHATASE 129 U/L (38-133); ALT/SGPT 27 U/L (7-56); AST/SGOT 30 U/L (15-39); BILIRUBIN,TOTAL 0.5 mg/dL (0.2-1.3); BLOOD UREA NITROGEN 6 mg/dL (7-21); CALCIUM 8.5 mg/dL (8.4-10.5); CARBON DIOXIDE 25 mmol/L (21-33); CHLORIDE 101 mmol/L (98-107); GFR AFRICAN-AMERICAN > 60; GLUCOSE,RANDOM 71 mg/dL (70-110); MAGNESIUM 1.7 mg/dL (1.7-2.2); POTASSIUM 3.4 mmol/L (3.6-5.0); SODIUM 137 mmol/L (132-148); TOTAL PROTEIN 6.7 g/dL (5.8-8.3)
[2017-03-25] MEDS: levoFLOXacin 750 mg in D5W 150 ML BAG IVPB SCH (09:21)
[2017-03-25] MEDS ORDERED: HYDROmorphone 2 mg/ml ISec IVP PRN (16:14)
[2017-03-26] MEDS: Pantoprazole 40mg/100ml IVPB 40 MG/100 ML BAG IVPB SCH (05:28)
[2017-03-26] MEDS: metroNIDAZOLE IV 500 mg/100 ml 500 MG/100 ML BAG IVPB SCH (05:54)
[2017-03-26 07:24] VITALS: BP 121/85; PULSE 83; RESP 20; TEMP 98.6; O2SAT 95
--- NOTE | 2017-03-26 08:00 | CP.PCM.PN ---
<Jenae Draper - Last Filed: 03/26/17 08:02> Subjective - Date & Time of Evaluation Date of Evaluation: 03/25/17 Time of Evaluation: 07:35 - Subjective Subjective: Patient was seen and examined at bedside. Patients abdominal pain is improving. Still has a sluggish appetite, is only taking clear liquids right now but tolerating it well. Still has not passed a bowel movement, this is day number 4. Patient denies having fevers and chills, n/v/d. Objective - Vital Signs/Intake and Output Vital Signs (last 24 hours): Temp Pulse Resp BP Pulse Ox 98.6 F 83 20 121/85 95 03/26/17 07:22 03/26/17 07:22 03/26/17 07:22 03/26/17 07:22 03/26/17 07:22 Intake and Output: 03/26/17 03/26/17 06:59 18:59 Intake Total 400 Balance 400 - Medications Medications: Current Medications Diphenhydramine HCl (Benadryl) 50 mg PO HS PRN PRN Reason: Insomnia Last Admin: 03/25/17 20:45 Dose: 50 mg Hydromorphone HCl (Dilaudid) 0.5 mg IVP Q6 PRN PRN Reason: Pain, severe (8-10) Last Admin: 03/25/17 16:54 Dose: 0.5 mg Metronidazole (Flagyl) 500 mg in 100 mls @ 100 mls/hr IVPB Q8 TEX PRN Reason: Protocol Last Admin: 03/26/17 05:54 Dose: 100 mls/hr Pantoprazole Sodium (Protonix 40mg Ivpb) 40 mg in 100 mls @ 200 mls/hr IVPB 0600 [facility] Last Admin: 03/26/17 05:28 Dose: 200 mls/hr Levofloxacin/Dextrose (Levaquin 750mg) 750 mg IVPB DAILY [facility] Last Admin: 03/25/17 09:21 Dose: 750 mg Ondansetron HCl (Zofran Inj) 4 mg IVP Q6H PRN PRN Reason: Nausea/Vomiting - Labs Labs: 03/25/17 08:00 03/25/17 08:00 - Constitutional Appears: Non-toxic, No Acute Distress - Head Exam Head Exam: ATRAUMATIC, NORMAL INSPECTION, NORMOCEPHALIC - Eye Exam Eye Exam: EOMI, Normal appearance, PERRL Pupil Exam: NORMAL ACCOMODATION, PERRL - ENT Exam ENT Exam: Mucous Membranes Moist, Normal Exam - Neck Exam Neck Exam: Full ROM, Normal Inspection - Respiratory Exam Respiratory Exam: Clear to Ausculation Bilateral, NORMAL BREATHING PATTERN. absent: Rhonchi, Wheezes - Cardiovascular Exam Cardiovascular Exam: REGULAR RHYTHM, RRR, +S1, +S2. absent: Gallop, Rubs, Murmur - GI/Abdominal Exam GI & Abdominal Exam: Soft, Tenderness, Hypoactive Bowel Sounds. absent: Firm, Guarding, Rigid Additional comments: Tendrness in LLQ and RLQ - Rectal Exam Rectal Exam: Deferred - Extremities Exam Extremities Exam: Full ROM, Normal Capillary Refill, Normal Inspection - Back Exam Back Exam: NORMAL INSPECTION - Neurological Exam Neurological Exam: Alert, Awake, CN II-XII Intact, Normal Gait, Oriented x3 - Psychiatric Exam Psychiatric exam: Normal Affect, Normal Mood - Skin Skin Exam: Dry, Intact, Normal Color, Warm Assessment and Plan - Assessment and Plan (Free Text) Assessment: 56 year old female with pmhx of diverticulitis, nephrolithiasis, brain abscess presents to the ED with worsening lower abdominal pain. CT abd/pelvis showing acute sigmoid diverticulitis with no evidence of free air or perforation. Plan: 1. Acute Sigmoid Diverticulitis -Stable, afebrile -Leukocytosis 16.1 on admission improving 13.1 today -Continue Abx: Levaquin and Flagyl (day 2) -F/U am labs -IVF hydration -Diet clear liquid diet, will advance as tolerated -Zofran prn nausea -Pain control: Dilaudid 1mg Q4H prn -Blood cx no growth x 24 hours -F/U urine cx, C diff -will require elective colonoscopy in 6-8 weeks -outpatient follow up with Dr. Franco in 2 weeks -GI consulted, f/u recommendations 2. History: Nephrolithiasis -Nothing acute 3. History: Brain abscess -Nothing acute 4. History: Seizure -No acute seizure activity 5. GI/DVT -Protonix -SCDs <Hernando Uribe - Last Filed: 03/26/17 12:58> Objective - Vital Signs/Intake and Output Vital Signs (last 24 hours): Temp Pulse Resp BP Pulse Ox 98.6 F 83 20 121/85 95 03/26/17 07:22 03/26/17 07:22 03/26/17 07:22 03/26/17 07:22 03/26/17 07:22 Intake and Output: 03/26/17 03/26/17 06:59 18:59 Intake Total 400 Balance 400 - Labs Labs: 03/25/17 08:00 03/25/17 08:00 Attending/Attestation - Attestation I have personally seen and examined this patient.: Yes I have fully participated in the care of the patient.: Yes I have reviewed all pertinent clinical information, including history, physical exam and plan: Yes Notes (Text): I have seen and examined the patient at bedside. Agree with the above note with the following additions/ exceptions: Briefly this is 56 year old female with history of one prior episode of diverticulitis, nephrolithiasis and brain abscess s/p craniotomy, nephrolithiasis s/p lithotripsy, tubal ligation who was admitted for acute sigmoid diverticulitis. Patient feels slightly better however she states that she has no appetite. Will continue clears for today. Continue iv antibiotics. Upon discharge patient will follow up with PMD of choice and Dr Franco as an outpatient for elective colonoscopy in 6-[address] Hernando Uribe
--- NOTE | 2017-03-26 09:44 | CP.PCM.PN ---
<Michel Capellan - Last Filed: 03/26/17 09:49> Subjective - Date & Time of Evaluation Date of Evaluation: 03/26/17 Time of Evaluation: 07:00 - Subjective Subjective: PGY4 GI follow-up Pt seen and examined bedside States that her pain in minimal at this time Denies any nausea, vomiting Denies any BM since admission tolerated liquid diet Objective - Vital Signs/Intake and Output Vital Signs (last 24 hours): Temp Pulse Resp BP Pulse Ox 98.6 F 83 20 121/85 95 03/26/17 07:22 03/26/17 07:22 03/26/17 07:22 03/26/17 07:22 03/26/17 07:22 Intake and Output: 03/26/17 03/26/17 06:59 18:59 Intake Total 400 Balance 400 - Medications Medications: Current Medications Diphenhydramine HCl (Benadryl) 50 mg PO HS PRN PRN Reason: Insomnia Last Admin: 03/25/17 20:45 Dose: 50 mg Hydromorphone HCl (Dilaudid) 0.5 mg IVP Q6 PRN PRN Reason: Pain, severe (8-10) Last Admin: 03/25/17 16:54 Dose: 0.5 mg Metronidazole (Flagyl) 500 mg in 100 mls @ 100 mls/hr IVPB Q8 TEX PRN Reason: Protocol Last Admin: 03/26/17 05:54 Dose: 100 mls/hr Pantoprazole Sodium (Protonix 40mg Ivpb) 40 mg in 100 mls @ 200 mls/hr IVPB 0600 [facility] Last Admin: 03/26/17 05:28 Dose: 200 mls/hr Levofloxacin/Dextrose (Levaquin 750mg) 750 mg IVPB DAILY [facility] Last Admin: 03/25/17 09:21 Dose: 750 mg Ondansetron HCl (Zofran Inj) 4 mg IVP Q6H PRN PRN Reason: Nausea/Vomiting - Labs Labs: 03/25/17 08:00 03/25/17 08:00 - Constitutional Appears: Well, Non-toxic, No Acute Distress - Head Exam Head Exam: ATRAUMATIC, NORMOCEPHALIC - Eye Exam Eye Exam: Normal appearance - ENT Exam ENT Exam: Mucous Membranes Moist, Normal Exam - Neck Exam Neck Exam: Normal Inspection - Respiratory Exam Respiratory Exam: Clear to Ausculation Bilateral, NORMAL BREATHING PATTERN. absent: Prolonged Expiratory Phase, Rales, Rhonchi, Wheezes, Respiratory Distress - Cardiovascular Exam Cardiovascular Exam: REGULAR RHYTHM, +S1, +S2 - GI/Abdominal Exam GI & Abdominal Exam: Soft, Tenderness (LLQ), Normal Bowel Sounds - Extremities Exam Extremities Exam: absent: Joint Swelling - Neurological Exam Neurological Exam: Alert, Awake, Oriented x3 - Psychiatric Exam Psychiatric exam: Normal Affect, Normal Mood - Skin Skin Exam: Dry, Intact, Normal Color, Warm Assessment and Plan - Assessment and Plan (Free Text) Assessment: 56 year old female with history of brain abscess status post craniotomy, nephrolithiasis, and Diverticulitis 2013 presenting with abdominal pain. Active treatment of uncomplicated sigmoid diverticulitis. No prior EGD or colonoscopy. Plan: -complete abx course of Levaquin/Flagyl as outpt -supportive care: pain control, anti-emetics as needed -advanced to to reg diet, if tolerated okay to d/c from GI standpoint -will require elective colonoscopy in 6-8 weeks -outpatient follow up with Dr. Franco in 2 weeks -will follow clinical course d/w Dr. Marroquin <Reji Marroquin - Last Filed: 03/26/17 10:03> Objective - Vital Signs/Intake and Output Vital Signs (last 24 hours): Temp Pulse Resp BP Pulse Ox 98.6 F 83 20 121/85 95 03/26/17 07:22 03/26/17 07:22 03/26/17 07:22 03/26/17 07:22 03/26/17 07:22 Intake and Output: 03/26/17 03/26/17 06:59 18:59 Intake Total 400 Balance 400 - Medications Medications: Current Medications Diphenhydramine HCl (Benadryl) 50 mg PO HS PRN PRN Reason: Insomnia Last Admin: 03/25/17 20:45 Dose: 50 mg Hydromorphone HCl (Dilaudid) 0.5 mg IVP Q6 PRN PRN Reason: Pain, severe (8-10) Last Admin: 03/25/17 16:54 Dose: 0.5 mg Metronidazole (Flagyl) 500 mg in 100 mls @ 100 mls/hr IVPB Q8 TEX PRN Reason: Protocol Last Admin: 03/26/17 05:54 Dose: 100 mls/hr Pantoprazole Sodium (Protonix 40mg Ivpb) 40 mg in 100 mls @ 200 mls/hr IVPB 0600 [facility] Last Admin: 03/26/17 05:28 Dose: 200 mls/hr Levofloxacin/Dextrose (Levaquin 750mg) 750 mg IVPB DAILY [facility] Last Admin: 03/25/17 09:21 Dose: 750 mg Ondansetron HCl (Zofran Inj) 4 mg IVP Q6H PRN PRN Reason: Nausea/Vomiting - Labs Labs: 03/25/17 08:00 03/25/17 08:00 Attending/Attestation - Attestation I have personally seen and examined this patient.: Yes I have fully participated in the care of the patient.: Yes I have reviewed all pertinent clinical information, including history, physical exam and plan: Yes Notes (Text): 03/26/17 10:03 56 year old F with prior h/o diverticulitis admitted with another episode of acute diverticulitis. 1. Acute diverticulitis Plan: -uncomplicated, continue antibiotics for 10-14 days today -2nd episode now -recommend outpatient colonoscopy when she recovers -advance diet as tolerated -ok to discharge from GI standpoint -will sign off
[2017-03-26] MEDS: levoFLOXacin 750 mg in D5W 150 ML BAG IVPB SCH (10:15)
--- NOTE | 2017-03-26 11:24 | CP.PCM.DIS ---
<Reji Salazar - Last Filed: 03/26/17 11:16> Provider - Provider Date of Admission: 03/23/17 10:53 Attending physician: Hernando Uribe MD Time Spent in preparation of Discharge (in minutes): 25 Diagnosis - Discharge Diagnosis (1) Acute diverticulitis Status: Resolved Priority: High (2) Diverticulitis Status: Chronic Priority: Medium Comment: Previous episode of diverticulitis noted Hospital Course - Lab Results Lab Results: Micro Results 03/23/17 10:55 Blood Blood Culture - Preliminary NO GROWTH AFTER 3 DAYS 03/23/17 10:55 Blood Blood Culture - Preliminary NO GROWTH AFTER 3 DAYS 03/23/17 11:50 Urine Urine Culture - Final MULTIPLE SPECIES. SUGGEST REPEAT SPECIMEN. Most Recent Lab Values WBC 14.3 10^3/ul (4.5-11.0) H 03/25/17 08:00 RBC 3.54 10^6/uL (3.5-6.1) 03/25/17 08:00 Hgb 10.5 g/dL (12.0-16.0) L 03/25/17 08:00 Hct 31.7 % (36.0-48.0) L 03/25/17 08:00 MCV 89.5 fl (80.0-105.0) 03/25/17 08:00 MCH 29.7 pg (25.0-35.0) 03/25/17 08:00 MCHC 33.1 g/dl (31.0-37.0) 03/25/17 08:00 RDW 13.3 % (11.5-14.5) 03/25/17 08:00 Plt Count 401 10^3/uL (120.0-450.0) 03/25/17 08:00 MPV 9.2 fl (7.0-11.0) 03/25/17 08:00 Gran % 82.5 % (50.0-68.0) H 03/25/17 08:00 Lymph % (Auto) 9.4 % (22.0-35.0) L 03/25/17 08:00 Bland % (Auto) 7.2 % (1.0-6.0) H 03/25/17 08:00 Eos % (Auto) 0.8 % (1.5-5.0) L 03/25/17 08:00 Baso % (Auto) 0.1 % (0.0-3.0) 03/25/17 08:00 Gran # 11.79 (1.4-6.5) H 03/25/17 08:00 Lymph # 1.4 (1.2-3.4) 03/25/17 08:00 Bland # 1.0 (0.1-0.6) H 03/25/17 08:00 Eos # 0.1 (0.0-0.7) 03/25/17 08:00 Baso # 0.02 K/mm3 (0.0-2.0) 03/25/17 08:00 pO2 71 mm/Hg (30-55) H 03/23/17 09:00 VBG pH 7.45 (7.32-7.43) H 03/23/17 09:00 VBG pCO2 43.0 (40-60) 03/23/17 09:00 VBG HCO3 29.9 mmol/l (21-28) H 03/23/17 09:00 VBG Total CO2 31.2 mmol.L (22-28) H 03/23/17 09:00 VBG O2 Sat (Calc) 97.4 % (40-65) H 03/23/17 09:00 VBG Base Excess 5.2 mmol/L (0.0-2.0) H 03/23/17 09:00 VBG Potassium 3.7 mmol/L (3.6-5.2) 03/23/17 09:00 Sodium 139.0 mmol/L (132-148) 03/23/17 09:00 Chloride 103.0 mmol/L (98-107) 03/23/17 09:00 Glucose 122 mg/dl (65-105) H 03/23/17 09:00 Lactate 0.7 mmol/L (0.7-2.1) 03/23/17 09:00 FiO2 21.0 % 03/23/17 09:00 Sodium 137 mmol/L (132-148) 03/25/17 08:00 Potassium 3.4 mmol/L (3.6-5.0) L 03/25/17 08:00 Chloride 101 mmol/L (98-107) 03/25/17 08:00 Carbon Dioxide 25 mmol/L (21-33) 03/25/17 08:00 Anion Gap 14 (10-20) 03/25/17 08:00 BUN 6 mg/dL (7-21) L 03/25/17 08:00 Creatinine 0.5 mg/dL (0.5-1.4) 03/25/17 08:00 Est GFR ( Amer) > 60 03/25/17 08:00 Est GFR (Non-Af Amer) > 60 03/25/17 08:00 Random Glucose 71 mg/dL (70-110) 03/25/17 08:00 Calcium 8.5 mg/dL (8.4-10.5) 03/25/17 08:00 Phosphorus 3.0 mg/dL (2.5-4.5) 03/25/17 08:00 Magnesium 1.7 mg/dL (1.7-2.2) 03/25/17 08:00 Total Bilirubin 0.5 mg/dL (0.2-1.3) 03/25/17 08:00 AST 30 U/L (15-39) 03/25/17 08:00 ALT 27 U/L (7-56) 03/25/17 08:00 Alkaline Phosphatase 129 U/L (38-133) 03/25/17 08:00 Lactate Dehydrogenase 457 U/L (333-699) 03/23/17 09:00 Total Creatine Kinase 87 U/L (35-230) 03/23/17 09:00 Troponin I < 0.01 ng/mL 03/23/17 09:00 Total Protein 6.7 g/dL (5.8-8.3) 03/25/17 08:00 Albumin 3.1 g/dL (3.0-4.8) 03/25/17 08:00 Globulin 3.6 gm/dL 03/25/17 08:00 Albumin/Globulin Ratio 0.9 (1.1-1.8) L 03/25/17 08:00 Venous Blood Potassium 3.7 mmol/L (3.6-5.2) 03/23/17 09:00 Urine Color Yellow (YELLOW) 03/23/17 09:00 Urine Appearance Clear (CLEAR) 03/23/17 09:00 Urine pH 6.0 (4.7-8.0) 03/23/17 09:00 Ur Specific Forest >= 1.030 (1.005-1.035) 03/23/17 09:00 Urine Protein Trace mg/dL (<30 mg/dL) H 03/23/17 09:00 Urine Glucose (UA) Negative mg/dL (NEGATIVE) 03/23/17 09:00 Urine Ketones 15 mg/dL (NEGATIVE) H 03/23/17 09:00 Urine Blood Small (NEGATIVE) H 03/23/17 09:00 Urine Nitrate Negative (NEGATIVE) 03/23/17 09:00 Urine Bilirubin Small (NEGATIVE) H 03/23/17 09:00 Urine Urobilinogen 2.0 E.U./dL (<1 E.U./dL) H 03/23/17 09:00 Ur Leukocyte Esterase Negative Lopez/uL (NEGATIVE) 03/23/17 09:00 Urine RBC 0 - 2 /hpf (0-2) 03/23/17 09:00 Urine WBC 0 - 2 /hpf (0-6) 03/23/17 09:00 Ur Epithelial Cells 1 - 3 /hpf (0-5) 03/23/17 09:00 Urine Bacteria Small (NEG) 03/23/17 09:00 - Hospital Course Hospital Course: This is a 56 yo F with PMH of diverticulitis, nephrolithiasis, and brain abscess who presented [place] [facility] [place] of unremitting lower abdominal pain that began 1 day prior to admission, and was found to have acute sigmoid diverticulitis on CT abd. While here, the patient was also seen by GI. As per GI, uncomplicated sigmoid diverticulitis, to be treated with antibiotics for 10-14, safe to discharge when patient tolerating regular diet. As per GI, given no prior EGD/Colonoscopy for this patient, should follow up as outpatient for colonoscopy in 6-8 weeks. Patient seen and examined at bedside. No acute complaints, no acute events overnight. Tolerating regular diet for breakfast without complaint or overt distress. Instructions from GI repeated to patient. Scripts for 10 days of Levaquin and Flagyl were transmitted to the patient's preferred pharmacy ( confirmed by patient), and patient as instructed to fill and take as prescribed. Reminded to follow up with GI as outpatient in 2 weeks, and for elective colonoscopy in 6-8 weeks. Patient expressed understanding and agreement with these instructions. All questions were answered to her satisfaction, and then she was discharged. Patient seen, examined, and discussed with attending, Dr. Hernando Uribe. Discharge Exam - Additional Findings Additional findings: - Constitutional Appears: Non-toxic, No Acute Distress, Resting in bed comfortably - Head Exam Head Exam: ATRAUMATIC, NORMAL INSPECTION, NORMOCEPHALIC - Eye Exam Eye Exam: EOMI, Normal appearance. Absent: Scleral icterus, Conjunctival injection Pupil Exam: Absent: Irregular, Unequal - ENT Exam ENT Exam: Mucous Membranes Moist, Normal Exam, Eating breakfast without apparent dysphagia - Neck Exam Neck Exam: Normal Inspection - Respiratory Exam Respiratory Exam: Clear to Ausculation Bilateral, NORMAL BREATHING PATTERN. absent: Rhonchi, Wheezes - Cardiovascular Exam Cardiovascular Exam: REGULAR RHYTHM, RRR, +S1, +S2. absent: Gallop, Rubs, Murmur, Tachycardia, Bradycardia, JVD - GI/Abdominal Exam GI & Abdominal Exam: Soft, Normal Bowel Sounds. absent: Firm, Guarding, Rigid, Tenderness - Extremities Exam Extremities Exam: Full ROM, Normal Capillary Refill, Normal Inspection. - Neurological Exam Neurological Exam: Alert, Awake, Following all commands appropriately, moving all extremities spontaneously - Psychiatric Exam Psychiatric exam: Normal Affect, Normal Mood - Skin Skin Exam: Dry, Intact, Normal Color, Warm Discharge Plan - Discharge Medications Prescriptions: levoFLOXacin [Levaquin] 750 mg PO DAILY #10 tab metroNIDAZOLE [Flagyl] 500 mg PO TID #30 tab - Follow Up Plan Condition: FAIR Disposition: HOME/ ROUTINE Patient education suggested?: Yes Instructions: Diverticulitis (DC), Diverticulitis Diet (DC) Additional Instructions: Please obtain and take your medications as prescribed. Please finish out the course of antibiotics. Follow up with your Primary Medical Doctor within 1 week. Follow up with the GI doctor within 2 weeks, and again in 6-8 weeks for colonoscopy. Return to the hospital if you have worsening symptoms or experience new concerning symptoms. Referrals: Chris Franco MD [Staff Provider] - <Hernando Uribe - Last Filed: 03/26/17 12:53> Provider - Provider Date of Admission: 03/23/17 10:53 Attending physician: Hernando Uribe MD Time Spent in preparation of Discharge (in minutes): 35 Hospital Course - Lab Results Lab Results: Micro Results 03/23/17 10:55 Blood Blood Culture - Preliminary NO GROWTH AFTER 3 DAYS 03/23/17 10:55 Blood Blood Culture - Preliminary NO GROWTH AFTER 3 DAYS 03/23/17 11:50 Urine Urine Culture - Final MULTIPLE SPECIES. SUGGEST REPEAT SPECIMEN. Most Recent Lab Values WBC 14.3 10^3/ul (4.5-11.0) H 03/25/17 08:00 RBC 3.54 10^6/uL (3.5-6.1) 03/25/17 08:00 Hgb 10.5 g/dL (12.0-16.0) L 03/25/17 08:00 Hct 31.7 % (36.0-48.0) L 03/25/17 08:00 MCV 89.5 fl (80.0-105.0) 03/25/17 08:00 MCH 29.7 pg (25.0-35.0) 03/25/17 08:00 MCHC 33.1 g/dl (31.0-37.0) 03/25/17 08:00 RDW 13.3 % (11.5-14.5) 03/25/17 08:00 Plt Count 401 10^3/uL (120.0-450.0) 03/25/17 08:00 MPV 9.2 fl (7.0-11.0) 03/25/17 08:00 Gran % 82.5 % (50.0-68.0) H 03/25/17 08:00 Lymph % (Auto) 9.4 % (22.0-35.0) L 03/25/17 08:00 Bland % (Auto) 7.2 % (1.0-6.0) H 03/25/17 08:00 Eos % (Auto) 0.8 % (1.5-5.0) L 03/25/17 08:00 Baso % (Auto) 0.1 % (0.0-3.0) 03/25/17 08:00 Gran # 11.79 (1.4-6.5) H 03/25/17 08:00 Lymph # 1.4 (1.2-3.4) 03/25/17 08:00 Bland # 1.0 (0.1-0.6) H 03/25/17 08:00 Eos # 0.1 (0.0-0.7) 03/25/17 08:00 Baso # 0.02 K/mm3 (0.0-2.0) 03/25/17 08:00 pO2 71 mm/Hg (30-55) H 03/23/17 09:00 VBG pH 7.45 (7.32-7.43) H 03/23/17 09:00 VBG pCO2 43.0 (40-60) 03/23/17 09:00 VBG HCO3 29.9 mmol/l (21-28) H 03/23/17 09:00 VBG Total CO2 31.2 mmol.L (22-28) H 03/23/17 09:00 VBG O2 Sat (Calc) 97.4 % (40-65) H 03/23/17 09:00 VBG Base Excess 5.2 mmol/L (0.0-2.0) H 03/23/17 09:00 VBG Potassium 3.7 mmol/L (3.6-5.2) 03/23/17 09:00 Sodium 139.0 mmol/L (132-148) 03/23/17 09:00 Chloride 103.0 mmol/L (98-107) 03/23/17 09:00 Glucose 122 mg/dl (65-105) H 03/23/17 09:00 Lactate 0.7 mmol/L (0.7-2.1) 03/23/17 09:00 FiO2 21.0 % 03/23/17 09:00 Sodium 137 mmol/L (132-148) 03/25/17 08:00 Potassium 3.4 mmol/L (3.6-5.0) L 03/25/17 08:00 Chloride 101 mmol/L (98-107) 03/25/17 08:00 Carbon Dioxide 25 mmol/L (21-33) 03/25/17 08:00 Anion Gap 14 (10-20) 03/25/17 08:00 BUN 6 mg/dL (7-21) L 03/25/17 08:00 Creatinine 0.5 mg/dL (0.5-1.4) 03/25/17 08:00 Est GFR ( Amer) > 60 03/25/17 08:00 Est GFR (Non-Af Amer) > 60 03/25/17 08:00 Random Glucose 71 mg/dL (70-110) 03/25/17 08:00 Calcium 8.5 mg/dL (8.4-10.5) 03/25/17 08:00 Phosphorus 3.0 mg/dL (2.5-4.5) 03/25/17 08:00 Magnesium 1.7 mg/dL (1.7-2.2) 03/25/17 08:00 Total Bilirubin 0.5 mg/dL (0.2-1.3) 03/25/17 08:00 AST 30 U/L (15-39) 03/25/17 08:00 ALT 27 U/L (7-56) 03/25/17 08:00 Alkaline Phosphatase 129 U/L (38-133) 03/25/17 08:00 Lactate Dehydrogenase 457 U/L (333-699) 03/23/17 09:00 Total Creatine Kinase 87 U/L (35-230) 03/23/17 09:00 Troponin I < 0.01 ng/mL 03/23/17 09:00 Total Protein 6.7 g/dL (5.8-8.3) 03/25/17 08:00 Albumin 3.1 g/dL (3.0-4.8) 03/25/17 08:00 Globulin 3.6 gm/dL 03/25/17 08:00 Albumin/Globulin Ratio 0.9 (1.1-1.8) L 03/25/17 08:00 Venous Blood Potassium 3.7 mmol/L (3.6-5.2) 03/23/17 09:00 Urine Color Yellow (YELLOW) 03/23/17 09:00 Urine Appearance Clear (CLEAR) 03/23/17 09:00 Urine pH 6.0 (4.7-8.0) 03/23/17 09:00 Ur Specific [place] >= 1.030 (1.005-1.035) 03/23/17 09:00 Urine Protein Trace mg/dL (<30 mg/dL) H 03/23/17 09:00 Urine Glucose (UA) Negative mg/dL (NEGATIVE) 03/23/17 09:00 Urine Ketones 15 mg/dL (NEGATIVE) H 03/23/17 09:00 Urine Blood Small (NEGATIVE) H 03/23/17 09:00 Urine Nitrate Negative (NEGATIVE) 03/23/17 09:00 Urine Bilirubin Small (NEGATIVE) H 03/23/17 09:00 Urine Urobilinogen 2.0 E.U./dL (<1 E.U./dL) H 03/23/17 09:00 Ur Leukocyte Esterase Negative Lopez/uL (NEGATIVE) 03/23/17 09:00 Urine RBC 0 - 2 /hpf (0-2) 03/23/17 09:00 Urine WBC 0 - 2 /hpf (0-6) 03/23/17 09:00 Ur Epithelial Cells 1 - 3 /hpf (0-5) 03/23/17 09:00 Urine Bacteria Small (NEG) 03/23/17 09:00 Attending/Attestation - Attestation I have personally seen and examined this patient.: Yes I have fully participated in the care of the patient.: Yes I have reviewed all pertinent clinical information, including history, physical exam and plan: Yes Notes (Text): I have seen and examined the patient at bedside. Agree with the above note with the following additions/ exceptions: Briefly this is 56 year old female with history of one prior episode of diverticulitis, nephrolithiasis and brain abscess s/p craniotomy, nephrolithiasis s/p lithotripsy, tubal ligation who was admitted for acute sigmoid diverticulitis. Patient feels well and denies any complaints. Will advance the diet and continue po antibiotics. Upon discharge patient will follow up with PMD of choice and Dr Franco as an outpatient for elective colonoscopy in 6-[address] Hernando Uribe.
== END 2017-03-26 12:45 | disposition home or self-care (01) | DRG 183 ==
LOC: ED 08:35 → ERH 10:53 → 3RNO 11:55
PROVIDERS: ADMIT Internal Medicine; ATTEND Hospitalist
DX: K57.32 Diverticulitis of large intestine without perforation or abscess without bleeding (principal); K59.00 Constipation, unspecified; Z87.442 Personal history of urinary calculi; Z86.61 Personal history of infections of the central nervous system; Z87.891 Personal history of nicotine dependence; Z88.0 Allergy status to penicillin

== ENCOUNTER 2018-02-25 18:59 | Emergency (ER) | payer MEDICAID, OTHER ==
[2018-02-25 19:00] VITALS: BMI 33.1
[2018-02-25 19:14] VITALS: TEMP 98
--- NOTE | 2018-02-25 19:25 | ED PDOC ---
Arrival/HPI <Shiraz Johnson - Last Filed: 02/25/18 20:18> - General Historian: Patient <Eliu Austin - Last Filed: 02/25/18 20:43> - General Chief Complaint: Headache Time Seen by Provider: 02/25/18 19:15 - History of Present Illness Narrative History of Present Illness (Text): 02/25/18 19:17 57 y/o female, pmh including seizure/diverticulitis/renal stone, allergic to penicillin and cephalosporin, c/o rt. posterior headache x 3 days with no fall or trauma. Aching and throbbing, relief with the migraine mediation which she took it prior to arrival, no headache now. Pt. stated that she had craniotomy in 2012 which she is concerning about her head. Pt. has no fever or chills, no neck stiffness, no change in vision, no numbness or tingling, no rash, no abdominal or pelvic pain, asymptomatic at this time, no other medical or psychological complaints. (Eliu Austin) Past Medical History - Provider Review Nursing Documentation Reviewed: Yes - Infectious Disease Hx of Infectious Diseases: None - Tetanus Immunization Tetanus Immunization: Unknown - Cardiac Hx Cardiac Disorders: No - Pulmonary Hx Respiratory Disorders: No - Neurological Hx Neurological Disorder: Yes Hx Seizures: Yes (ONLY ONE) Other/Comment: 2012 BRAIN ABSCESS WITH CRANIOTOMY - HEENT Hx HEENT Disorder: No - Renal Hx Kidney Stones: Yes (LITHOTRISPY) - Endocrine/Metabolic Hx Endocrine Disorders: No - Hematological/Oncological Hx Blood Disorders: No - Integumentary Hx Dermatological Disorder: No - Musculoskeletal/Rheumatological Hx Musculoskeletal Disorders: No Hx Falls: No - Gastrointestinal Hx Gastrointestinal Disorders: Yes Hx Diverticulitis: Yes - Genitourinary/Gynecological Other/Comment: MISCARRIAGE,TUBAL LIGATION 3 CHILDREN - Psychiatric Hx Emotional Abuse: No Hx Physical Abuse: No Hx Substance Use: No - Surgical History Other/Comment: 2012 CRANIOTOMY (BRAIN ABSCESS) - Anesthesia Hx Anesthesia Reactions: No Hx Malignant Hyperthermia: No - Suicidal Assessment Feels Threatened In Home Enviroment: No <Eliu Austin - Last Filed: 02/25/18 20:43> Family/Social History - Physician Review Nursing Documentation Reviewed: Yes Family/Social History: Unknown Family HX Smoking Status: Current Some Days Smoker Hx Alcohol Use: No Hx Substance Use: No Hx Substance Use Treatment: No <AustinEliu Louie - Last Filed: 02/25/18 20:43> Allergies/Home Meds <Shiraz Johnson - Last Filed: 02/25/18 20:18> <AustinEliu - Last Filed: 02/25/18 20:43> Allergies/Adverse Reactions: Allergies ceftriaxone sodium [From Rocephin] Allergy (Verified 02/25/18 19:14) RASH Penicillins Allergy (Verified 02/25/18 19:14) RASH Home Medications: Home Meds Medication Instructions Recorded Confirmed No Known Home Med 02/25/18 02/25/18 Review of Systems - Review of Systems Constitutional: absent: Fatigue, Fevers Eyes: absent: Vision Changes ENT: absent: Hearing Changes Respiratory: absent: SOB, Cough Cardiovascular: absent: Chest Pain Gastrointestinal: absent: Abdominal Pain, Nausea, Vomiting Musculoskeletal: absent: Arthralgias, Back Pain Skin: absent: Rash, Pruritis Neurological: Headache. absent: Dizziness, Focal Weakness Psychiatric: absent: Anxiety, Depression, Suicidal Ideation <Eliu Austin Jacy - Last Filed: 02/25/18 20:43> Physical Exam Vital Signs Reviewed: Yes Temperature: Afebrile Blood Pressure: Hypertensive Pulse: Regular Respiratory Rate: Normal Appearance: Positive for: Well-Appearing, Non-Toxic, Comfortable Pain Distress: None Mental Status: Positive for: Alert and Oriented X 3 - Systems Exam Head: Present: Atraumatic, Normocephalic. No: Tenderness, Contusion, Swelling, Ecchymosis, Abrasion, Laceration, Other Pupils: Present: PERRL, Other (no AV Knicking, no papilledema) Extroacular Muscles: Present: EOMI Conjunctiva: Present: Normal Ears: Present: NORMAL TM, Normal Canal. No: Erythema Mouth: Present: Moist Mucous Membranes, Normal Lips, Normal Tounge, Normal Teeth Pharnyx: No: ERYTHEMA, EXUDATE, TONSILS ENLARGED, Uvular Deviation, Soft Palate/ Uvular Edema Nose (External): Present: Atraumatic. No: Abrasion, Contusion, Laceration Nose (Internal): Present: Normal Inspection, No Active Bleeding. No: Rhinorrhea , Septal Hematoma, Epistaxis Neck: Present: Normal Range of Motion, Trachea Midline. No: Meningeal Signs, MIDLINE TENDERNESS, Paraspinal Tenderness, Lymphadenopathy Respiratory/Chest: Present: Clear to Auscultation, Good Air Exchange. No: Respiratory Distress, Accessory Muscle Use Cardiovascular: Present: Regular Rate and Rhythm, Normal S1, S2. No: Murmurs Abdomen: No: Tenderness, Distention, Peritoneal Signs, Rebound, Guarding Back: Present: Normal Inspection. No: Midline Tenderness Upper Extremity: Present: Normal Inspection, Normal ROM, NORMAL PULSES, Neurovascularly Intact, Capillary Refill < 2s, Norm 2-Pt Discrimination. No: Cyanosis, Edema, Tenderness, Swelling, Erythema, Temperature Abnormalties, Deformity Lower Extremity: Present: Normal Inspection, NORMAL PULSES, Normal ROM, Neurovascularly Intact, Capillary Refill < 2 s. No: Edema, Tenderness, Swelling , Deformity Neurological: Present: GCS=15, CN II-XII Intact, Speech Normal, Motor Func Grossly Intact, Normal Cerebellar Funct, Gait Normal, Memory Normal, Other (no drift, normal finger to nose test, normal heel to shah test. ) Skin: Present: Warm, Dry, Normal Color. No: Rashes Psychiatric: Present: Alert, Oriented x 3, Normal Insight, Normal Concentration <Eliu Austin - Last Filed: 02/25/18 20:43> Vital Signs Temp Pulse Resp BP Pulse Ox 02/25/18 19:11 98 F 87 18 153/89 H 100 Medical Decision Making <Shiraz Johnson - Last Filed: 02/25/18 20:18> - Lab Interpretations I have reviewed the lab results: Yes - RAD Interpretation Retail Sales Lead: Radiologist <Eliu Austin - Last Filed: 02/25/18 20:43> ED Course and Treatment: 02/25/18 19:31 -Labs -CT Head (pt. is claustrophobic and request to be premedicated with ativan) -Observe and reassess 02/25/18 20:19 -Labs are non-significant except wbc 11.8 from 14 compared with previous labs, afebrile, no neck stiffness, vitally stable, likely stress induced. -CT Head show No acute findings. -Pt. is asymptomatic, all labs and radiology result discussed with the patient. Pt. has no focal neurological deficits. -Discharge home with education on follow up with the neurologist and continue headache medication, your wbc is 11.8 and repeat with your own pmd in a week, return to the ER for any new or worsening signs or symptoms. (Eliu Austin) - Lab Interpretations Lab Results: 02/25/18 19:35 02/25/18 19:35 Lab Results 02/25/18 19:35: Sodium 142, Potassium 3.8, Chloride 102, Carbon Dioxide 26, Anion Gap 17, BUN 18, Creatinine 0.7, Est GFR ( Amer) > 60, Est GFR (Non- Af Amer) > 60, Random Glucose 90, Calcium 9.5, Total Bilirubin 0.4, AST 36, ALT 38, Alkaline Phosphatase 122, Total Protein 9.0 H, Albumin 4.7, Globulin 4.3, Albumin/Globulin Ratio 1.1 02/25/18 19:35: WBC 11.8 H, RBC 4.37, Hgb 13.3 D, Hct 39.1, MCV 89.5, MCH 30.4 , MCHC 34.0, RDW 13.7, Plt Count 354, MPV 9.6, Gran % 59.9, Lymph % (Auto) 30.1 , [place] % (Auto) 6.6 H, Eos % (Auto) 3.1, Baso % (Auto) 0.3, Gran # 7.08 H, Lymph # (Auto) 3.6 H, Montgomery # (Auto) 0.8 H, Eos # (Auto) 0.4, Baso # (Auto) 0.03 - RAD Interpretation Radiology Orders: 02/25/18 19:25 HEAD W/O CONTRAST [CT] Stat 02/25/18 19:25 HEAD W/O CONTRAST [CT] Stat FINDINGS: Brain: Encephalomalacia involving the right parieto-occipital region probably related to postsurgical. No hemorrhage. No significant white matter disease. Ventricles: Unremarkable. No ventriculomegaly. Bones/joints: Surgical changes in the right parieto-occipital region of the skull. No acute fracture. Soft tissues: Unremarkable. Sinuses: Unremarkable as visualized. No acute sinusitis. Mastoid air cells: Unremarkable as visualized. No mastoid effusion. IMPRESSION: No acute findings. Thank you for allowing us to participate in the care of your patient. Dictated and Authenticated by: Neva Jones MD (Eliu Austin) - Medication Orders Current Medication Orders: Discontinued Medications Lorazepam (Ativan) 2 mg IVP ONCE ONE PRN Reason: Protocol Stop: 02/25/18 19:26 Last Admin: 02/25/18 19:38 Dose: 2 mg IVP Administration Document 02/25/18 19:38 CNR (Rec: 02/25/18 19:38 CNR [id number]) Charges for Administration # of IVP Administrations 1 - PA / POWER TRANSFORMER INSPECTOR / Resident Statement DIANA has reviewed & agrees with the documentation as recorded. <Shiraz Johnson - Last Filed: 02/25/18 20:18> - PA / POWER TRANSFORMER INSPECTOR / Resident Statement DIANA has reviewed & agrees with the documentation as recorded. <Eliu Austin - Last Filed: 02/25/18 20:43> Disposition/Present on Arrival <Shiraz Johnson - Last Filed: 02/25/18 20:18> - Present on Arrival Any Indicators Present on Arrival: No History of DVT/PE: No History of Uncontrolled Diabetes: No Urinary Catheter: No History of Decub. Ulcer: No History Surgical Site Infection Following: None - Disposition Have Diagnosis and Disposition been Completed?: Yes Disposition Time: 20:43 Patient Plan: Discharge <Eliu Austin - Last Filed: 02/25/18 20:43> - Disposition Diagnosis: Headache Disposition: HOME/ ROUTINE Condition: GOOD Additional Instructions: -Discharge home with education on follow up with the neurologist and continue headache medication, your wbc is 11.8 and repeat with your own pmd in a week, return to the ER for any new or worsening signs or symptoms. Referrals: FAMILY PROVIDER,NO [Primary Care Provider] - Follow up with primary [facility] [Outside] - Follow up with primary Armani Urban MD [Staff Provider] - Follow up with primary Forms: [employer] (Bengali), WORK NOTE
[2018-02-25 20:16] LABS: ALB/GLOB RATIO 1.1 (1.1-1.8); ALBUMIN 4.7 g/dL (3.0-4.8); ALT/SGPT 38 U/L (7-56); AST/SGOT 36 U/L (14-36); BLOOD UREA NITROGEN 18 mg/dL (7-21); CALCIUM 9.5 mg/dL (8.4-10.5); GFR AFRICAN-AMERICAN > 60; GFR NON-AFRICAN AMERICAN > 60
[2018-02-25 20:17] LABS: BASO # 0.03 K/mm3 (0.0-2.0); BASO % 0.3 % (0.0-3.0); EOS # 0.4 (0.0-0.7); EOS % 3.1 % (1.5-5.0); GRAN # 7.08 (1.4-6.5); GRAN % 59.9 % (50.0-68.0); HEMOGLOBIN 13.3 g/dL (12.0-16.0); LYMPH # 3.6 (1.2-3.4); LYMPH % 30.1 % (22.0-35.0); MEAN CELL VOLUME 89.5 fl (80.0-105.0); MEAN CORPUSCULAR HEMOGLOBIN 30.4 pg (25.0-35.0); MEAN PLATELET VOLUME 9.6 fl (7.0-11.0); MONO # 0.8 (0.1-0.6); MONO % 6.6 % (1.0-6.0); RBC 4.37 10^6/uL (3.5-6.1); RED CELL DISTRIBUTION WIDTH 13.7 % (11.5-14.5); WHITE BLOOD COUNT 11.8 10^3/ul (4.5-11.0)
[2018-02-25 20:55] VITALS: BP 130/83; PULSE 80; RESP 16; O2SAT 98
--- NOTE | 2018-02-26 08:52 | CT ---
Date of service: 02/25/2018 PROCEDURE: CT HEAD WITHOUT CONTRAST. HISTORY: rt. sided headache x 3 days COMPARISON: None available. TECHNIQUE: Axial computed tomography images were obtained through the head/brain without intravenous contrast. Radiation dose: Total exam DLP = mGy-cm. This CT exam was performed using one or more of the following dose reduction techniques: Automated exposure control, adjustment of the mA and/or kV according to patient size, and/or use of iterative reconstruction technique. FINDINGS: HEMORRHAGE: No intracranial hemorrhage. BRAIN: No mass effect or edema. Chronic encephalomalacia along the right parietal lobe likely postsurgical. VENTRICLES: Unremarkable. No hydrocephalus. CALVARIUM: Unremarkable. PARANASAL SINUSES: Unremarkable as visualized. No significant inflammatory changes. MASTOID AIR CELLS: Unremarkable as visualized. No inflammatory changes. OTHER FINDINGS: None. IMPRESSION: No acute hemorrhage.
== END 2018-02-25 20:54 | disposition home or self-care (01) ==
LOC: ED 18:59
DX: R51 Headache (principal); R56.9 Unspecified convulsions
CPT/HCPCS: 70450; 80053; 85025; 96374; 99285; J2060

== ENCOUNTER 2018-09-12 15:35 | Emergency (ER) | payer OTHER ==
[2018-09-12 16:15] VITALS: BMI 34.9
[2018-09-12 16:18] VITALS: RESP 18; TEMP 98
[2018-09-12] MEDS ORDERED: Sodium Chloride 0.9% 500 ML IV STA ×2 (17:00→18:19)
[2018-09-12] MEDS ORDERED: Morphine 4 mg/ml ISec IVP STA (17:16)
[2018-09-12 17:33] VITALS: O2SAT 98
--- NOTE | 2018-09-12 17:43 | ED PDOC ---
Arrival/HPI - General Chief Complaint: Abdominal Pain Time Seen by Provider: 09/12/18 16:37 Historian: Patient - History of Present Illness Narrative History of Present Illness (Text): 09/12/18 17:39 58yr old female with hx of diverticulitis presents today with worsening abdominal pain over the past 2 weeks. pt denies fever/chills. no cp or sob. pt states the pain is located to the llq and occasionally radiates across the lower abdomen. pt describes the pain as a crampy sensation that is intermittent. pt states she took aleve for pain yesterday without improvement. no medications were taken today for pain. no fever/chills. no dizziness or weakness. no n/v. pt states she has been having occasional constipation and occasional diarrhea. Time/Duration: > week Past Medical History - Provider Review Nursing Documentation Reviewed: Yes - Travel History Have you recently traveled outside [place] w/in the past 3 mons?: No - Infectious Disease Hx of Infectious Diseases: None - Tetanus Immunization Tetanus Immunization: Unknown - Cardiac Hx Cardiac Disorders: No - Pulmonary Hx Respiratory Disorders: No - Neurological Hx Neurological Disorder: Yes Hx Seizures: Yes (ONLY ONE) Other/Comment: 2012 BRAIN ABSCESS WITH CRANIOTOMY - HEENT Hx HEENT Disorder: No - Renal Hx Kidney Stones: Yes (LITHOTRISPY) - Endocrine/Metabolic Hx Endocrine Disorders: No - Hematological/Oncological Hx Blood Disorders: No - Integumentary Hx Dermatological Disorder: No - Musculoskeletal/Rheumatological Hx Musculoskeletal Disorders: No Hx Falls: No - Gastrointestinal Hx Gastrointestinal Disorders: Yes Hx Diverticulitis: Yes - Genitourinary/Gynecological Other/Comment: MISCARRIAGE,TUBAL LIGATION 3 CHILDREN - Psychiatric Hx Emotional Abuse: No Hx Physical Abuse: No Hx Substance Use: No - Surgical History Other/Comment: 2012 CRANIOTOMY (BRAIN ABSCESS) - Anesthesia Hx Anesthesia: Yes Hx Anesthesia Reactions: No Hx Malignant Hyperthermia: No - Suicidal Assessment Feels Threatened In Home Enviroment: No Family/Social History - Physician Review Nursing Documentation Reviewed: Yes Family/Social History: Unknown Family HX Smoking Status: Current Some Days Smoker Hx Alcohol Use: No Hx Substance Use: No Hx Substance Use Treatment: No Allergies/Home Meds Allergies/Adverse Reactions: Allergies ceftriaxone sodium [From Rocephin] Allergy (Verified 02/25/18 19:14) RASH Penicillins Allergy (Verified 02/25/18 19:14) RASH Review of Systems - Review of Systems Constitutional: absent: Fatigue, Fevers Respiratory: absent: SOB, Cough Cardiovascular: absent: Chest Pain, Palpitations Gastrointestinal: Abdominal Pain, Constipation, Diarrhea. absent: Nausea, Vomiting Genitourinary Female: absent: Dysuria, Frequency, Hematuria Musculoskeletal: absent: Arthralgias, Back Pain, Neck Pain Skin: absent: Rash, Pruritis Neurological: absent: Headache, Dizziness Psychiatric: absent: Anxiety, Depression Physical Exam Vital Signs Reviewed: Yes Vital Signs Temp Pulse Resp BP Pulse Ox 09/12/18 17:33 86 18 121/74 98 09/12/18 16:17 98.0 F 97 H 18 125/87 97 Temperature: Afebrile Blood Pressure: Normal Pulse: Regular Respiratory Rate: Normal Appearance: Positive for: Well-Appearing, Non-Toxic, Comfortable Pain Distress: None Mental Status: Positive for: Alert and Oriented X 3 - Systems Exam Head: Present: Atraumatic Mouth: Present: Moist Mucous Membranes Neck: Present: Normal Range of Motion Respiratory/Chest: Present: Clear to Auscultation, Good Air Exchange. No: Respiratory Distress, Accessory Muscle Use Cardiovascular: Present: Regular Rate and Rhythm, Normal S1, S2. No: Murmurs Abdomen: Present: Tenderness (llq tenderness). No: Distention, Peritoneal Signs, Rebound, Guarding Back: Present: Normal Inspection. No: CVA Tenderness, Midline Tenderness, Paraspinal Tenderness Upper Extremity: Present: Normal ROM Lower Extremity: Present: Normal ROM Neurological: Present: GCS=15, Speech Normal Skin: Present: Warm, Dry, Normal Color. No: Rashes Psychiatric: Present: Alert, Oriented x 3 Medical Decision Making ED Course and Treatment: 09/12/18 17:42 Patient is nontoxic well appearing with stable vital signs presenting with se miguelina llq abdominal pain CBC wnl CMP wnl Lipase wnl Urinalysis: no leukocytes CAT scan: FINDINGS: LUNG BASES: The lung bases appear clear. No pleural effusions are seen. LIVER: Unremarkable. GALLBLADDER AND BILE DUCTS: The gallbladder appears distended.. No radioopaque gallstones are seen. No biliary ductal dilatation is evident. PANCREAS: Unremarkable. SPLEEN: Unremarkable. ADRENAL GLANDS: Unremarkable. KIDNEYS, URETERS, AND BLADDER: The kidneys appear within normal limits. There is no hydronephrosis or hydroureter. No urinary calculi are seen. STOMACH AND BOWEL: Unremarkable appearance of the stomach and bowel. No evidence of bowel obstruction. There is diverticular change involving the descending and sigmoid colon with pericolonic stranding and a small amount of fluid about the distal descending and sigmoid colon suspicious for diverticulitis without diverticular mass or abscess. APPENDIX: No evidence of acute appendicitis on CT examination. PERITONEUM: No free fluid. No free air. LYMPH NODES: No lymphadenopathy is evident. REPRODUCTIVE: Unremarkable as visualized. VASCULATURE: No evidence of abdominal aortic aneurysm. BONES: No aggressive appearing osseous lesion. No acute osseous pathology evident. IMPRESSION: Diverticulosis involving the descending and sigmoid colon with diverticulitis suspected. Close clinical correlation is advised. Patient reassessment: pt feeling better after medications. vitals stable. Discussed all results with patient in depth. I advised the patient that we will place her on 2 different antibiotics for 10 days. I've advised patient to follow-up with the primary care physician and GI specialist within the next 2 days. I've advised the patient return immediately if symptoms worsen persist or if new concerning symptoms develop. Advised patient to return if she develops high fevers worsening abdominal pain or any other concerning symptoms. I've advised the patient a possibility of tendon rupture on Cipro and now she should refrain from any heavy or strenuous activity. Patient verbalizes understanding of discharge instructions and need for immediate followup. all aspects of this case were discussed the attending of record. Impression: diverticulitis Motrin every 6 hours as needed for pain Cipro one tablet twice daily x 10 days Flagyl one tablet three times daily x 10 days Follow up with primary care physician within the next 2 days Follow up with the GI specialist within the next 2 days. Return immediately if symptoms worsen persist or if new symptoms develop: High fevers, increasing pain, vomiting, diarrhea or any other concerning symptoms develop - RAD Interpretation Radiology Orders: 09/12/18 17:22 ABD & PELVIS IV CONTRAST ONLY [CT] Stat - Medication Orders Current Medication Orders: Discontinued Medications Sodium Chloride (Sodium Chloride 0.9%) 500 mls @ 999 mls/hr IV .Q31M STA Stop: 09/12/18 17:30 Last Admin: 09/12/18 17:11 Dose: 999 mls/hr eMAR Start Stop Document 09/12/18 17:11 EQ (Rec: 09/12/18 17:11 EQ [facility] [id number]) Intravenous Solution Start Date 09/12/18 Start Time 17:11 Morphine Sulfate (Morphine) 4 mg IVP STAT STA Stop: 09/12/18 17:17 Ondansetron HCl (Zofran Inj) 4 mg IVP STAT STA Stop: 09/12/18 17:17 Disposition/Present on Arrival - Present on Arrival Any Indicators Present on Arrival: No History of DVT/PE: No History of Uncontrolled Diabetes: No Urinary Catheter: No History of Decub. Ulcer: No History Surgical Site Infection Following: None - Disposition Have Diagnosis and Disposition been Completed?: Yes Diagnosis: Diverticulitis Disposition: HOME/ ROUTINE Disposition Time: 20:19 Patient Plan: Discharge Condition: GOOD Discharge Instructions (ExitCare): Diverticulitis (DC) Additional Instructions: Motrin every 6 hours as needed for pain Cipro one tablet twice daily x 10 days Flagyl one tablet three times daily x 10 days Follow up with primary care physician within the next 2 days Follow up with the GI specialist within the next 2 days. Return immediately if symptoms worsen persist or if new symptoms develop: High fevers, increasing pain, vomiting, diarrhea or any other concerning symptoms develop Prescriptions: Ciprofloxacin [Cipro] 500 mg PO BID #20 tab metroNIDAZOLE [Flagyl] 500 mg PO TID #30 tab Referrals: Pk Oden MD [Primary Care Provider] - Follow up with primary Ricardo Larkin MD [Staff Provider] - Follow up with primary Claribel Marquis MD [Medical Doctor] - Follow up with primary Forms: [employer] (Welsh), WORK NOTE
[2018-09-12 18:06] LABS: BASO # 0.04 K/mm3 (0.0-2.0); BASO % 0.4 % (0.0-3.0); EOS # 0.2 (0.0-0.7); EOS % 1.6 % (1.5-5.0); LYMPH # 2.4 (1.2-3.4); LYMPH % 25.8 % (22.0-35.0); MEAN CELL VOLUME 90.5 fl (80.0-105.0); MEAN CORPUSCULAR HEMOGLOBIN 30.8 pg (25.0-35.0); MEAN PLATELET VOLUME 9.8 fl (7.0-11.0); MONO # 0.7 (0.1-0.6); MONO % 7.3 % (1.0-6.0); RBC 4.55 10^6/uL (3.5-6.1); WHITE BLOOD COUNT 9.4 10^3/uL (4.5-11.0)
[2018-09-12 18:07] LABS: PH,URINE 6.5 (4.7-8.0); URINE BILIRUBIN SMALL (NEGATIVE); URINE BLOOD NEGATIVE (NEGATIVE); URINE GLUCOSE (UA) NEGATIVE (NEGATIVE); URINE LEUKOCYTE ESTERASE NEGATIVE Leu/uL (NEGATIVE); URINE PROTEIN NEGATIVE mg/dL (<30 mg/dL); URINE UROBILINOGEN 0.2 E.U./dL (<1 E.U./dL)
[2018-09-12 18:10] LABS: URINE APPEARANCE CLEAR (CLEAR); URINE COLOR LIGHT ORANGE (YELLOW)
[2018-09-12 18:17] LABS: ALB/GLOB RATIO 1.1 (1.1-1.8); ALBUMIN 4.5 g/dL (3.0-4.8); ALT/SGPT 21 U/L (7-56); AST/SGOT 32 U/L (14-36); BLOOD UREA NITROGEN 16 mg/dL (7-21); CALCIUM 9.7 mg/dL (8.4-10.5); GFR NON-AFRICAN AMERICAN > 60
[2018-09-12 20:35] VITALS: BP 102/73; PULSE 78
--- NOTE | 2018-09-13 09:32 | CT ---
Date of service: 09/12/2018 PROCEDURE: CT Abdomen and Pelvis with contrast HISTORY: llq abd pain/ hx of diverticulitis COMPARISON: Abdomen pelvis CT with contrast 03/23/2017. TECHNIQUE: Following the intravenous administration of iodinated contrast material, a CT examination of the abdomen and pelvis was performed from the domes of the diaphragms to the symphysis pubis with reformatted datasets provided in axial, sagittal and coronal planes. Oral contrast was not administered as per referring physician request. Contrast dose: Omnipaque 350, 149 cc. Radiation dose: Total exam DLP = 993.47 mGy-cm. This CT exam was performed using one or more of the following dose reduction techniques: Automated exposure control, adjustment of the mA and/or kV according to patient size, and/or use of iterative reconstruction technique. FINDINGS: LOWER THORAX: Unremarkable. LIVER: There is a faint sub cm lucency at the right lobe liver inferiorly, stable, but too small to characterize. The remainder of the liver is stable and unremarkable. No intrahepatic biliary dilatation appreciable. GALLBLADDER AND BILE DUCTS: The gallbladder is distended but thin walled. No radiodense cholelithiasis or pericholecystic fluid collection. Clinically correlate nevertheless for potential cholecystitis. PANCREAS: Unremarkable. No gross lesion or ductal dilatation. SPLEEN: Unremarkable. ADRENALS: Unremarkable. No mass. KIDNEYS AND URETERS: Unremarkable. No hydronephrosis. No solid mass. VASCULATURE: Unremarkable. No aortic aneurysm. No aortic atherosclerotic calcification or mural plaque present. BOWEL: Prominent fecal loading is seen throughout the colon suggesting constipation. Extensive left colonic diverticular changes are appreciated once again, affecting primarily the mid and distal descending colon and the entire sigmoid segment. Pericolic reaction and likely mural thickening are identified beginning at the mid descending colon up to the proximal sigmoid segment compatible diverticulitis. Lack of oral contrast limits evaluation of the bowel lumen as well as the presence of prominent retained fecal material. Unopacified small bowel loops are unremarkable appearing. APPENDIX: Retrocecal appendix appears unremarkable. PERITONEUM: Pericolic reaction as discussed above with perineum otherwise appearing. LYMPH NODES: Unremarkable. No enlarged lymph nodes. BLADDER: Unremarkable. REPRODUCTIVE: Unremarkable. BONES: No acute fracture. OTHER FINDINGS: None. IMPRESSION: Findings most compatible with acute or subacute diverticulitis with the proximal segment of the sigmoid colon affected as well as mid and distal descending segments. No abscess or free intra peritoneal gas collection appreciated. No prominent fluid collection. Further clinical correlation is advised. Prominent large-bowel fecal loading may indicate constipation. Clinically correlate further. Concordant preliminary report from Angel, 09/12/2018 7:43 p.m..
== END 2018-09-12 21:17 | disposition home or self-care (01) ==
LOC: ED 15:35
DX: K57.92 Diverticulitis of intestine, part unspecified, without perforation or abscess without bleeding (principal)
CPT/HCPCS: 74177; 80053; 81003; 85025; 87040; 96374; 96375; 99283; J2270; J2405; J7040